=== PATIENT | male | born 1945 | race Caucasian/White ===

== ENCOUNTER → 2023-10-20 11:37 | Outpatient (REF) | payer OTHER, SELFPAY ==
[2023-10-20 13:11] LABS: Urine Albumin Negative (Neg - Trace); Urine Bilirubin Negative (Negative); Urine Character Clear (Clear); Urine Color Yellow; Urine Glucose Negative (Negative); Urine Ketone Negative (Negative); Urine Leukocyte Negative (Negative); Urine Nitrite Negative (Negative); Urine Occult Blood Negative (Negative); Urine Urobilinogen Negative (Neg - 1+)
[2023-10-20 13:22] LABS: % Basophils 0.5 % (0-2); % Eosinophils 4.7 % (0-6); % Immature Granulocytes 0.5 % (0-0.5); % Lymphocytes 40.4 % (20.5-51.1); % Monocytes 8.9 % (1.7-9.3); Absolute Eosinophils 0.4 10^3/uL (0-0.7); Absolute Lymphocytes 3.3 10^3/uL (1.2-3.4); Absolute Monocytes 0.7 10^3/uL (0.1-0.6); Absolute Neutrophils 3.6 10^3/uL (1.4-6.5); Hematocrit 38.8 % (39.0-52.0); Hemoglobin 13.4 g/dL (13.0-18.0); Mean Corp Hgb Conc. 34.5 g/dL (33.0-37.0); Mean Corpuscular Hgb 31.6 pg (27.0-31.0); Mean Corpuscular Volume 91.5 fL (80.0-94.0); Mean Platelet Volume 10.4 fL (7.4-10.4); Nucleated Red Blood Cells % 0 % (-); Platelet Count 245 10^3/uL (130-400); Red Blood Cell Count 4.24 10^6/uL (4.70-6.10); Red Cell Dist. Width 14.4 % (11.5-14.5); White Blood Cell Count 8.1 10^3/uL (4.8-10.8)
[2023-10-20 13:54] LABS: ALT (SGPT) 20 U/L (0-50); AST (SGOT) 28 U/L (17-59); Albumin 4.5 g/dl (3.5-5.0); Alkaline Phosphatase 100 U/L (38-126); Blood Urea Nitrogen 45 mg/dl (9-20); Calcium 9.7 mg/dl (8.4-10.2); Carbon Dioxide 23 mmol/L (22-30); Chloride 105 mmol/L (98-107); Glucose 96 mg/dl (70-99); HDL Cholesterol 48 mg/dl; LDL Cholesterol, Calculated 132 mg/dl; Potassium 4.5 mmol/L (3.5-5.1); Sodium 136 mmol/L (135-145); Total Bilirubin 1.1 mg/dl (0.2-1.3); Total Cholesterol 205 mg/dl (50-199); Total Protein 7.5 g/dl (6.3-8.2); Triglyceride 127 mg/dl (10-149); Very Low Density Lipoprotein 25 mg/dl (0-30); eGFR 37.82
[2023-10-20 14:09] LABS: Vitamin D, 25-OH*** 55.1 ng/mL (30-80)
== END ==
LOC: REG 11:37
PROVIDERS: ATTENDING PHYSICIAN Internal Medicine Geriatric Medicine
DX: I10 Essential (primary) hypertension (principal); E78.2 Mixed hyperlipidemia; E21.3 Hyperparathyroidism, unspecified; M25.512 Pain in left shoulder; E55.9 Vitamin D deficiency, unspecified; F41.8 Other specified anxiety disorders; R26.89 Other abnormalities of gait and mobility; G62.9 Polyneuropathy, unspecified; H81.10 Benign paroxysmal vertigo, unspecified ear; R41.3 Other amnesia; Z13.89 Encounter for screening for other disorder; I95.1 Orthostatic hypotension; H81.13 Benign paroxysmal vertigo, bilateral
CPT/HCPCS: 36415; 80053; 80061; 81003; 82306; 85025

== ENCOUNTER 2023-11-26 17:34 | Emergency (ER) | payer OTHER, SELFPAY ==
[2023-11-26 17:39] VITALS: BP 162/79
[2023-11-26 17:57] LABS: % Basophils 0.4 % (0-2); % Eosinophils 3.2 % (0-6); % Immature Granulocytes 0.3 % (0-0.5); % Lymphocytes 35.3 % (20.5-51.1); % Monocytes 7.5 % (1.7-9.3); % Neutrophils 53.3 % (42.2-75.2); Absolute Eosinophils 0.2 10^3/uL (0-0.7); Absolute Lymphocytes 2.6 10^3/uL (1.2-3.4); Absolute Monocytes 0.6 10^3/uL (0.1-0.6); Absolute Neutrophils 3.9 10^3/uL (1.4-6.5); Hematocrit 34.1 % (39.0-52.0); Hemoglobin 12.1 g/dL (13.0-18.0); Mean Corp Hgb Conc. 35.5 g/dL (33.0-37.0); Mean Corpuscular Hgb 32.2 pg (27.0-31.0); Mean Corpuscular Volume 90.7 fL (80.0-94.0); Mean Platelet Volume 9.4 fL (7.4-10.4); Nucleated Red Blood Cells % 0 % (-); Platelet Count 183 10^3/uL (130-400); Red Blood Cell Count 3.76 10^6/uL (4.70-6.10); Red Cell Dist. Width 13.6 % (11.5-14.5); White Blood Cell Count 7.3 10^3/uL (4.8-10.8)
[2023-11-26 18:26] LABS: ALT (SGPT) 16 U/L (0-50); AST (SGOT) 26 U/L (17-59); Albumin 4.2 g/dl (3.5-5.0); Alkaline Phosphatase 99 U/L (38-126); Blood Urea Nitrogen 31 mg/dl (9-20); Carbon Dioxide 23 mmol/L (22-30); Chloride 109 mmol/L (98-107); Glucose 121 mg/dl (70-99); Potassium 4.1 mmol/L (3.5-5.1); Sodium 138 mmol/L (135-145); Total Bilirubin 0.6 mg/dl (0.2-1.3); Total Protein 6.9 g/dl (6.3-8.2); eGFR 47.06
[2023-11-26 18:38] LABS: Troponin I < 0.012 ng/ml
[2023-11-26 19:37] VITALS: BP 149/80
[2023-11-26 19:38] VITALS: BMI 26.8
[2023-11-26 20:00] VITALS: BP 128/66
--- NOTE | 2023-11-26 20:33 | ED.GENMED ---
History of Present Illness
General
Chief Complaint: Chest Pain
Source: patient
Exam Limitations: none
Time Seen by Provider: 11/26/23 19:54
Nursing documentation reviewed up to this point in time: agreed with
Travel History
Have you had any contact with someone who has COVID-19?: No
Do you have any symptoms of coronavirus? Fever > 100 degrees, chills, cough, shortness of breath, sore throat, loss of taste or smell, muscle aches, or headache?: No
History of Present Illness
History of Present Illness:
Patient is a 78-year-old male with back problems history of hypertension presents to the ER for evaluation of chest pain. Patient reports he has had mostly constant left-sided chest pain for the past several days. He reports he does feel like he
is under a lot of stress because his partner was recently hospitalized for stroke and just came home today. He denies any associated shortness of breath with his nausea vomiting. Has no cardiac history. He does not smoke.
Past History
Past History
ED Past Medical History: HTN (Borderline hypertension), Psychiatric (Depression) and Other (Back pain, cervical disc disease, left shoulder arthritis)
ED Past Surgical History: Tonsilectomy
Social History
Tobacco: Former smoker
Alcohol: Occasional
Drug: None
Personal:
Living: with family (WITH )
Employment: Retired
Family History
Family History: Other (Noncontributory)
Review of Systems
Review of Systems
Allergies reviewed?: Yes
Other source history: family
All Other Systems: ROS reviewed and negative except as documented in HPI and ROS
Constitutional: Reports no symptoms; Denies fever, fatigue or chills
Respiratory: Reports no symptoms; Denies cough, hemoptysis or trouble breathing
Cardiac: Reports chest pain; Denies diaphoresis, palpitations or syncope
ABD/GI: Reports no symptoms
: Reports no symptoms
Musculoskeletal: Reports no symptoms
Skin: Reports no symptoms
Neurological: Reports no symptoms
Psychiatric: Reports no symptoms
Phy Exam
General Physical Exam
General Presentation: no apparent distress
General age: appears stated age
General Skin: warm and dry
General Habitus: normal
General Mental: alert
Cardiovascular Exam
Cardiovascular Exam: regular rate/rhythm, no murmur and normal peripheral pulses
Gastrointestinal Exam
Gastrointestinal Exam: normal bowel sounds and non tender
Neurological Exam
Neurological Exam: alert and oriented x3
Musculoskeletal Exam
Musculoskeletal Exam: full ROM
Skin Exam
Skin Exam: normal color and warm/dry
Psychiatric Exam
Psychiatric Exam: normal mood/affect
Scores
Heart Score for Chest Pain Patients
STEMI patient?: Not applicable
Course
Orders/Labs/Results
Orders:
Orders
11/26/23 17:36
Electrocardiogram (*1) Urgent
Reason for Study: Chest Pain
EKG- Treatment ONCE
11/26/23 17:49
Complete Blood Count/With Diff Urgent
Comprehensive Metabolic Panel Urgent
Troponin I Urgent
11/26/23 18:18
CR Chest - 2 Views Urgent
Comment:
Reason For Exam: chest pain
11/26/23 20:43
Acetaminophen [Tylenol] 1,000 mg PO NOW STA
Abnormal Lab Results
11/26/23
17:49
RBC 3.76 L 10^6/uL
(4.70-6.10)
Hgb 12.1 L g/dL
(13.0-18.0)
Hct 34.1 L %
(39.0-52.0)
MCH 32.2 H pg
(27.0-31.0)
Chloride 109 H mmol/L
(98-107)
BUN 31 H mg/dl
(9-20)
Creatinine 1.5 H mg/dL
(0.7-1.3)
Glucose 121 H mg/dl
(70-99)
11/26/23 17:49
11/26/23 17:49
Vital Signs
Initial and Last Documented VS:
Initial Vital Signs
Temp Pulse Resp BP Pulse Ox
98.4 F 69 20 162/79 98
11/26/23 17:39 11/26/23 17:39 11/26/23 17:39 11/26/23 17:39 11/26/23 17:39
Last Documented Vital Signs
Temp Pulse Resp BP Pulse Ox
98.4 F 54 12 169/80 99
11/26/23 17:39 11/26/23 21:00 11/26/23 21:00 11/26/23 21:00 11/26/23 21:00
MDM/Problems Addressed
Differential Diagnosis Includes:
Not limited to ACS, stress anxiety chest wall pain less likely PE
MDM/Problems Addressed:
Patient is a 78-year-old male who had constant chest pain for the past several days not associate with shortness of breath nausea vomiting. He has no cardiac history. He has no acute findings on chest x-ray EKG normal cardiac troponin. Patient
was given Tylenol here in no acute distress he does mention that he was very stressed recently as his partner was recently hospitalized for stroke in the ICU here. Pain started when his partner was admitted. He does admit to feeling very stressed
he was home alone.
He presents awake alert no acute distress labs reviewed as documented cardiac troponin negative. Patient's BUN/creatinine are elevated at 31 and 1.5. He does report his doctors are aware of this I did review with patient that he should not be
taking any ibuprofen for discomfort he has been taking some ibuprofen for his back pain which is chronic. I reviewed with patient the importance of following up with his family doctor the next of days for reevaluation of his kidney function and lab
recheck.
Will place on chest pain hotline
*Radiology
Radiology exam reviewed: radiology read reviewed
*Pulse Oximetry
Patient hypoxic: no
*EKG
Interpreted by ED Provider?: Yes
Interpretation: normal
Heart Rate: 68
Rate: normal
Rhythm: sinus
Ischemia: no ischemia
*Critical Care Note
Total Time (30-74mins, 75-104mins- exclusive of procedures): Not Applicable
ED Attending Note
-
Portions of this chart may have been created with voice recognition software.� Occasional wrong word or��sound alike� substitutions may have occurred due to the inherent limitations of voice recognition software.
Discharge Plan
Departure
Patient Disposition: Home (Routine Discharge)
Date of Disposition: 11/26/23
Time of Disposition: 21:31
Patient with high blood pressure during this ER visit?: Yes
Condition: Fair
Covid-19: Not Applicable
Discharge Problem:
Chest pain
Instructions: Chest Pain CBC Follow Up
Prescriptions:
No Action
hydrocodone-acetaminophen 7.5 MG/750 MG tablet
0.5 tab PO Q4HPRN PRN (Reason: pain)
lisinopril 10 mg Tablet
10 mg PO DAILY
Referrals:
Cooper Ridley MD [Family Provider] -
Shahid Leonard MD [Active] -
Activity Restrictions/Additional Instructions:
As discussed you were placed on the chest pain hotline which means you should receive a phone call from cardiology in the next several days however if you do not please give the office a call to schedule an appointment as soon as possible. Return
if any worsening of symptoms.
Interventions
Interventions:
*Risk Screen - Suicide Last Done: 11/26/23 19:38
*General Assessment Last Done: 11/26/23 19:38
*Neglect/Abuse Screening Last Done: 11/26/23 19:38
ED- Fall Risk Assessment Last Done: 11/26/23 19:38
*ED COVID-19 Vaccine History Last Done: 11/26/23 19:38
*Nursing Disposition Last Done: 11/26/23 21:43
ED- Cardiac Assessment Last Done: 11/26/23 19:38
Discharge Date and Time
Discharge Date/Time: 11/26/23 21:43
Print Language: LATVIAN
[2023-11-26] MEDS: TYLENOL 1000 MG PO (20:47)
[2023-11-26 21:00] VITALS: BP 169/80
== END 2023-11-26 21:43 | disposition home or self-care (01) ==
LOC: EMR 17:34
PROVIDERS: EMERGENCY PHYSICIAN Emergency Medicine; FAMILY PHYSICIAN Internal Medicine Geriatric Medicine
DX: R07.89 Other chest pain (principal); I10 Essential (primary) hypertension; F32.A Depression, unspecified; M50.90 Cervical disc disorder, unspecified, unspecified cervical region; M13.812 Other specified arthritis, left shoulder; Z86.73 Personal history of transient ischemic attack (TIA), and cerebral infarction without residual deficits; Z87.891 Personal history of nicotine dependence
CPT/HCPCS: 99283; 71046; 80053; 84484; 85025; 93005

== ENCOUNTER → 2024-03-07 11:45 | Outpatient (REF) | payer OTHER, SELFPAY ==
[2024-03-07 12:39] LABS: % Basophils 0.3 % (0-2); % Eosinophils 3.9 % (0-6); % Immature Granulocytes 0.3 % (0-0.5); % Lymphocytes 36.8 % (20.5-51.1); % Monocytes 8.8 % (1.7-9.3); % Neutrophils 49.9 % (42.2-75.2); Absolute Eosinophils 0.3 10^3/uL (0-0.7); Absolute Lymphocytes 2.7 10^3/uL (1.2-3.4); Absolute Monocytes 0.6 10^3/uL (0.1-0.6); Absolute Neutrophils 3.6 10^3/uL (1.4-6.5); Hematocrit 36.4 % (39.0-52.0); Hemoglobin 12.8 g/dL (13.0-18.0); Mean Corp Hgb Conc. 35.2 g/dL (33.0-37.0); Mean Corpuscular Hgb 31.4 pg (27.0-31.0); Mean Corpuscular Volume 89.4 fL (80.0-94.0); Mean Platelet Volume 9.8 fL (7.4-10.4); Nucleated Red Blood Cells % 0 % (-); Platelet Count 198 10^3/uL (130-400); Red Blood Cell Count 4.07 10^6/uL (4.70-6.10); Red Cell Dist. Width 13.2 % (11.5-14.5); White Blood Cell Count 7.3 10^3/uL (4.8-10.8)
[2024-03-07 12:43] LABS: Urine Albumin Negative (Neg - Trace); Urine Bilirubin Negative (Negative); Urine Character Clear (Clear); Urine Color Yellow; Urine Glucose Negative (Negative); Urine Ketone Negative (Negative); Urine Leukocyte Negative (Negative); Urine Nitrite Negative (Negative); Urine Occult Blood Negative (Negative); Urine Specific Gravity 1.015 (<1.030); Urine Urobilinogen Negative (Neg - 1+)
[2024-03-07 12:59] LABS: NT-proBNP 61.3 pg/ml
[2024-03-07 13:02] LABS: ALT (SGPT) 15 U/L (0-50); AST (SGOT) 23 U/L (17-59); Albumin 4.4 g/dl (3.5-5.0); Alkaline Phosphatase 91 U/L (38-126); Blood Urea Nitrogen 30 mg/dl (9-20); Calcium 9.9 mg/dl (8.4-10.2); Carbon Dioxide 25 mmol/L (22-30); Chloride 106 mmol/L (98-107); Glucose 107 mg/dl (70-99); HDL Cholesterol 43 mg/dl; LDL Cholesterol, Calculated 95 mg/dl; Potassium 4.6 mmol/L (3.5-5.1); Sodium 138 mmol/L (135-145); Total Bilirubin 0.9 mg/dl (0.2-1.3); Total Cholesterol 182 mg/dl (50-199); Total Protein 6.8 g/dl (6.3-8.2); Triglyceride 223 mg/dl (10-149); Very Low Density Lipoprotein 44 mg/dl (0-30); eGFR 43.56
[2024-03-07 13:22] LABS: Vitamin D, 25-OH*** 55.1 ng/mL (30-80)
[2024-03-07 13:27] LABS: Intact PTH 56.8 pg/ml (13.6-85.8)
== END ==
LOC: REG 11:45
PROVIDERS: ATTENDING PHYSICIAN Internal Medicine Geriatric Medicine
DX: E78.2 Mixed hyperlipidemia (principal); I10 Essential (primary) hypertension; E21.3 Hyperparathyroidism, unspecified; M25.512 Pain in left shoulder; E55.9 Vitamin D deficiency, unspecified; F41.8 Other specified anxiety disorders; R26.89 Other abnormalities of gait and mobility; R26.9 Unspecified abnormalities of gait and mobility; G62.9 Polyneuropathy, unspecified; R41.3 Other amnesia; Z13.89 Encounter for screening for other disorder; R42 Dizziness and giddiness; I95.1 Orthostatic hypotension; H81.13 Benign paroxysmal vertigo, bilateral; M54.6 Pain in thoracic spine; R07.9 Chest pain, unspecified
CPT/HCPCS: 36415; 80053; 80061; 81003; 82306; 83880; 83970; 85025

== ENCOUNTER → 2024-03-09 12:52 | Outpatient (REF) | payer OTHER, SELFPAY | LOC: RAD 12:52 | PROVIDERS: ATTENDING PHYSICIAN Nurse Practitioner Family; FAMILY PHYSICIAN Internal Medicine Geriatric Medicine | DX: M25.511 Pain in right shoulder (principal) | CPT/HCPCS: 73030 ==

== ENCOUNTER → 2024-03-15 09:31 | Outpatient (REF) | payer OTHER, SELFPAY | LOC: RCS 09:31 | PROVIDERS: ATTENDING PHYSICIAN Internal Medicine Geriatric Medicine | DX: E78.2 Mixed hyperlipidemia (principal); I10 Essential (primary) hypertension; E21.3 Hyperparathyroidism, unspecified; M25.512 Pain in left shoulder; E55.9 Vitamin D deficiency, unspecified; F41.8 Other specified anxiety disorders; R26.89 Other abnormalities of gait and mobility; R26.9 Unspecified abnormalities of gait and mobility; G62.9 Polyneuropathy, unspecified; R41.3 Other amnesia; Z13.89 Encounter for screening for other disorder; R42 Dizziness and giddiness; I95.1 Orthostatic hypotension; H81.13 Benign paroxysmal vertigo, bilateral; M54.6 Pain in thoracic spine; R07.9 Chest pain, unspecified | CPT/HCPCS: 93017; 93350 ==

== ENCOUNTER → 2024-04-12 09:08 | Outpatient (REF) | payer OTHER, SELFPAY ==
[2024-04-12 11:47] LABS: Blood Urea Nitrogen 22 mg/dl (9-20); Calcium 9.9 mg/dl (8.4-10.2); Carbon Dioxide 24 mmol/L (22-30); Chloride 104 mmol/L (98-107); Glucose 101 mg/dl (70-99); Potassium 4.9 mmol/L (3.5-5.1); Sodium 140 mmol/L (135-145); eGFR 51.13
== END ==
LOC: REG 09:08
PROVIDERS: ATTENDING PHYSICIAN Nurse Practitioner Family; FAMILY PHYSICIAN Internal Medicine Geriatric Medicine
DX: N28.9 Disorder of kidney and ureter, unspecified (principal)
CPT/HCPCS: 36415; 80048

== ENCOUNTER → 2024-06-20 06:45 | Outpatient (REF) | payer OTHER, SELFPAY | LOC: PAVMRI 06:45 | PROVIDERS: ATTENDING PHYSICIAN Orthopaedic Surgery; FAMILY PHYSICIAN Internal Medicine Geriatric Medicine | DX: M25.512 Pain in left shoulder (principal) | CPT/HCPCS: 73221 ==

== ENCOUNTER → 2025-01-01 09:05 | Outpatient (REF) | payer OTHER, SELFPAY ==
[2025-01-01 09:53] LABS: % Basophils 0.3 % (0-2); % Eosinophils 2.9 % (0-6); % Immature Granulocytes 0.2 % (0-0.5); % Lymphocytes 34.5 % (20.5-51.1); % Monocytes 7.4 % (1.7-9.3); % Neutrophils 54.7 % (42.2-75.2); Absolute Eosinophils 0.3 10^3/uL (0-0.7); Absolute Monocytes 0.7 10^3/uL (0.1-0.6); Absolute Neutrophils 4.8 10^3/uL (1.4-6.5); Hematocrit 42.6 % (39.0-52.0); Hemoglobin 14.1 g/dL (13.0-18.0); Mean Corp Hgb Conc. 33.1 g/dL (33.0-37.0); Mean Corpuscular Hgb 30.3 pg (27.0-31.0); Mean Corpuscular Volume 91.6 fL (80.0-94.0); Mean Platelet Volume 9.8 fL (7.4-10.4); Nucleated Red Blood Cells % 0 % (-); Platelet Count 217 10^3/uL (130-400); Red Blood Cell Count 4.65 10^6/uL (4.70-6.10); Red Cell Dist. Width 13.6 % (11.5-14.5); White Blood Cell Count 8.7 10^3/uL (4.8-10.8)
[2025-01-01 11:21] LABS: ALT (SGPT) 15 U/L (0-50); AST (SGOT) 22 U/L (17-59); Albumin 4.8 g/dl (3.5-5.0); Alkaline Phosphatase 121 U/L (38-126); Blood Urea Nitrogen 24 mg/dl (9-20); Calcium 10.2 mg/dl (8.4-10.2); Carbon Dioxide 24 mmol/L (22-30); Chloride 107 mmol/L (98-107); Glucose 101 mg/dl (70-99); HDL Cholesterol 68 mg/dl; LDL Cholesterol, Calculated 123 mg/dl; Sodium 140 mmol/L (135-145); Total Bilirubin 0.8 mg/dl (0.2-1.3); Total Cholesterol 215 mg/dl (50-199); Total Protein 7.7 g/dl (6.3-8.2); Triglyceride 122 mg/dl (10-149); Very Low Density Lipoprotein 24 mg/dl (0-30); Vitamin D, 25-OH*** 44.1 ng/mL (30-80); eGFR 50.81
[2025-01-01 11:30] LABS: Potassium 4.9 mmol/L (3.5-5.1)
[2025-01-01 12:10] LABS: Urine Albumin 1+ (Neg - Trace); Urine Bilirubin Negative (Negative); Urine Character Clear (Clear); Urine Color Yellow; Urine Glucose Negative (Negative); Urine Ketone Negative (Negative); Urine Leukocyte Negative (Negative); Urine Nitrite Negative (Negative); Urine Occult Blood Negative (Negative); Urine Specific Gravity 1.015 (<1.030); Urine Urobilinogen Negative (Neg - 1+)
[2025-01-01 14:48] LABS: Urine Amorphous Seen; Urine Mucus Moderate; Urine Squamous Cell 0-2 /LPF (Few)
[2025-01-01 14:49] LABS: Urine Red Blood Cell 0-2 /HPF (0-2); Urine White Cell 0-2 /HPF (0-5)
[2025-01-02 19:14] LABS: Intact PTH 123.4 pg/ml (13.6-85.8)
[2025-01-03 04:11] LABS: Vitamin D 1,25 Dihydroxy 46.9 pg/mL (19.9-79.3)
[2025-01-03 16:04] LABS: Free T4 1.03 ng/dl (0.78-2.19)
[2025-01-03 16:18] LABS: TSH 4.25 uIU/ml (0.47-4.68)
== END ==
LOC: REG 09:05
PROVIDERS: ATTENDING PHYSICIAN Internal Medicine Geriatric Medicine
DX: E21.3 Hyperparathyroidism, unspecified (principal); E78.2 Mixed hyperlipidemia; I10 Essential (primary) hypertension; E55.9 Vitamin D deficiency, unspecified; R26.89 Other abnormalities of gait and mobility; G62.9 Polyneuropathy, unspecified; R26.9 Unspecified abnormalities of gait and mobility; R41.3 Other amnesia; I95.1 Orthostatic hypotension; Z13.89 Encounter for screening for other disorder; M79.674 Pain in right toe(s)
CPT/HCPCS: 36415; 80053; 80061; 81003; 81015; 82306; 82652; 83970; 84439; 84443; 85025

== ENCOUNTER → 2025-01-03 14:57 | Outpatient (REF) | payer OTHER, SELFPAY | LOC: REG 14:57 | PROVIDERS: ATTENDING PHYSICIAN Nurse Practitioner Family | DX: K59.01 Slow transit constipation (principal) | CPT/HCPCS: 74018 ==

== ENCOUNTER 2025-02-24 15:27 | Inpatient (IN) | payer OTHER, SELFPAY ==
[2025-02-24] VITALS (16 sets, daily range): BP systolic 102–184; BP diastolic 55–117; BMI 23.7; BMI 23.4
[2025-02-24 05:34] LABS: Hematocrit 44.5 % (39.0-52.0); Hemoglobin 15.6 g/dL (13.0-18.0); Mean Corp Hgb Conc. 35.1 g/dL (33.0-37.0); Mean Corpuscular Volume 87.8 fL (80.0-94.0); Nucleated Red Blood Cells % 0 % (-); Platelet Count 205 10^3/uL (130-400); Red Cell Dist. Width 14.5 % (11.5-14.5)
[2025-02-24 05:56] LABS: ALT (SGPT) 15 U/L (0-50); AST (SGOT) 23 U/L (17-59); Albumin 4.7 g/dl (3.5-5.0); Alkaline Phosphatase 127 U/L (38-126); Blood Urea Nitrogen 13 mg/dl (9-20); Calcium 10.0 mg/dl (8.4-10.2); Carbon Dioxide 21 mmol/L (22-30); Chloride 104 mmol/L (98-107); Glucose 130 mg/dl (70-99); Lipase 63 U/L (23-300); Potassium 4.0 mmol/L (3.5-5.1); Sodium 135 mmol/L (135-145); Total Protein 7.9 g/dl (6.3-8.2); eGFR > 60.00
[2025-02-24] MEDS: DILAUDID 0.5 MG IV ×2 (07:56→09:36)
[2025-02-24] MEDS: ZOFRAN 4 MG IV (07:56)
[2025-02-24] MEDS: NSS 1000 IV (07:57)
[2025-02-24] MEDS: PROTONIX IV 80 MG IV (08:05)
[2025-02-24 08:25] LABS: Troponin I < 0.012 ng/ml
--- NOTE | 2025-02-24 09:14 | ED.GENMED ---
History of Present Illness
General
Chief Complaint: Abdominal Pain
Source: patient
Exam Limitations: none
Time Seen by Provider: 02/24/25 07:16
Nursing documentation reviewed up to this point in time: agreed with
History of Present Illness
History of Present Illness:
79 yo male with h/o HTN, HLD, Afib on Coumadin, mitral valve regurg and stenosis, RA, Depression, low back pain, presents with abdominal pain that began on 3 nights ago 3 hours after eating. The pain occurred suddenly while the patient was sitting
and has persisted since onset. He describes the pain as a severe aching sensation, comparable to being 'hit by a boxer.' Bending over eases the pain some. He has not slept or eaten much in the past three days due to the pain. There has been no
fever, vomiting or diarrhea. He mentioned some leg cramping, which he believes may be due to needing more movement or dehydration. He has not experienced pain in the abdomen or any changes in urination.
Past History
Past History
ED Past Medical History: HTN (Borderline hypertension), Psychiatric (Depression) and Other (Back pain, cervical disc disease, left shoulder arthritis)
ED Past Surgical History: Tonsilectomy
Social History
Tobacco: Former smoker
Alcohol: Occasional
Drug: None
Personal:
Living: with family (WITH )
Employment: Retired
Family History
Family History: Other (Noncontributory)
Review of Systems
Review of Systems
Allergies reviewed?: Yes
All Other Systems: ROS reviewed and negative except as documented in HPI and ROS
Constitutional: Denies fever
Cardiac: Denies chest pain
ABD/GI: Reports abdominal pain and nausea; Denies vomiting or diarrhea
: Denies dysuria or difficulty voiding
Musculoskeletal: Reports other (Muscle cramps in legs intermittent)
Skin: Reports no symptoms
Neurological: Reports no symptoms
Phy Exam
Physical Exam
Physical Exam:
GENERAL: Mild distress due to abdominal pain. A&Ox3.
CONSTITUTIONAL: Afebrile.
EYES: clear, conjunctivae normal
ENMT: moist mucus membranes, Pharynx nl
RESPIRATORY: Regular respirations, nonlabored, lungs clear.
CARDIOVASCULAR: Regular rate and rhythm, no murmurs, no rubs.
GI: Soft, significantly tender mid upper epigastric to left abdomen. Hypoactive bowel sounds
MUSCULOSKELETAL: Moves with ease. Well perfused.
SKIN: Warm, dry, pink
PSYCH: Anxious mood and affect. Well kept, interactive and appropriate
NEUROLOGIC: Awake, alert and oriented. No focal neurological deficits
Course
Orders/Labs/Results
Orders:
Orders
02/24/25 05:16
Electrocardiogram (*1) Urgent
Reason for Study: Abdominal Pain
EKG- Treatment ONCE
IV Insert/Care/Rem.- Treatment PRN
02/24/25 05:29
Complete Blood Count/With Diff Urgent
Comprehensive Metabolic Panel Urgent
Lipase Urgent
02/24/25 07:36
Troponin I Urgent
02/24/25 07:48
0.9% Sodium Chloride 1000 ml [Nss] 1,000 ml IV BOLUS
HYDROmorphone [Dilaudid] 0.5 mg IV NOW STA
Ondansetron Injectable [Zofran] 4 mg IV NOW STA
02/24/25 07:49
CT Abd/pelvis W Iv Cont Urgent
Comment:
Reason For Exam: upper abd pain
HYDROmorphone [Dilaudid] 0.5 mg .ROUTE .STK-MED ONE
Ondansetron Injectable [Zofran] 4 mg .ROUTE .STK-MED ONE
Pantoprazole [Protonix IV] 80 mg IV NOW STA
02/24/25 09:21
US Abdomen Limited Urgent
Reason For Exam: pain, suspicioun on CT scan for GB disease
02/24/25 09:31
HYDROmorphone [Dilaudid] 0.5 mg IV NOW STA
02/24/25 13:12
SURGICAL CONSULT Urgent
Consulting Provider: Wes Neri
Was physician already notified: Yes
Reason for consult: acute cholecystitis
02/24/25 13:13
Piperacillin/Tazo 3.375 Gram [Zosyn] 3.375 gram in 50 ml IV NOW
02/24/25 13:16
Prothrombin Time Urgent
02/24/25 14:43
Admit/Transfer Patient As Directed
Co-Sign Provider:
Level of Care: Inpatient admission
Assign to:: Telemetry
Physician / Group: yanique/medicine
Diagnosis: cholecystitis
Reason for Telemetry: Arrhythmia
Date to Stop Telemetry: 02/27/25
Time to Stop Telemetry: 11:00
Reason for Hospitalization: cholecystitis
Expected length of stay greater than two midnights?: Yes
ELOS- Estimated Length of Stay in days: 3
I certify the patient meets the requirements for IP care: Yes
PRN Pain Medication Management As Directed
May give lesser potent ordered pain med per pt: Yes
preference::
Protocol:: Medication orders for pain may be administered in a
manner that supports deferring to patient preference
when the pt is:
- Requesting an ordered lesser potent pain medication.
Least to most potent pain medications are defined
as: acetaminophen < NSAID < tramadol < opioids
(morphine, oxycodone, hydromorphone).
- Requesting a lesser dose of the same medication IF
ORDERED.
- Requesting a less intrusive route of administration
if both routes are prescribed by the provider (PO <
IV).
02/24/25 14:44
Code Status As Directed
Resuscitation Status: Full Code
02/27/25 11:00
DC Protocol for Telemetry ONCE
Abnormal Lab Results
02/24/25 02/24/25
05:29 13:16
WBC 12.2 H 10^3/uL
(4.8-10.8)
Abs Immat Gran (auto) 0.1 H 10^3/uL
(0-0.05)
Absolute Neuts (auto) 9.5 H 10^3/uL
(1.4-6.5)
Absolute Monos (auto) 1.1 H 10^3/uL
(0.1-0.6)
Neutrophils % 77.9 H %
(42.2-75.2)
Lymphocytes % 12.7 L %
(20.5-51.1)
PT 14.8 H Sec
(11.4-14.6)
Carbon Dioxide 21 L mmol/L
(22-30)
Glucose 130 H mg/dl
(70-99)
Alkaline Phosphatase 127 H U/L
(38-126)
02/24/25 05:29
02/24/25 05:29
Vital Signs
Initial and Last Documented VS:
Initial Vital Signs
Temp Pulse Resp BP Pulse Ox
98.9 F 82 22 164/87 97
02/24/25 05:11 02/24/25 05:11 02/24/25 05:11 02/24/25 05:11 02/24/25 05:11
Last Documented Vital Signs
Temp Pulse Resp BP Pulse Ox
98.9 F 87 20 158/90 97
02/24/25 05:11 02/24/25 12:49 02/24/25 12:49 02/24/25 12:49 02/24/25 12:30
MDM/Problems Addressed
Differential Diagnosis Includes:
1. Peptic Ulcer Disease
2. Pancreatitis
3. Cholecystitis
4. Bowel Obstruction
5. Renal Colic
6. Diverticulitis
7. Abdominal Aortic Aneurysm
8. Acute Mesenteric Ischemia
9. Gastritis
10. Hepatitis
MDM/Problems Addressed:
79 yo male with h/o HTN, Depression, low back pain, presents with abdominal pain that began on 3 nights ago 3 hours after eating. The pain occurred suddenly while the patient was sitting and has persisted since onset. He describes the pain as a
severe aching sensation, comparable to being 'hit by a boxer.' Bending over eases the pain some. He has not slept or eaten much in the past three days due to the pain. There has been no fever, vomiting or diarrhea. He mentioned some leg cramping,
which he believes may be due to needing more movement or dehydration. He has not experienced pain in the abdomen or any changes in urination.
Afebrile, mild distress due to pain
9:15 AM:
CBC, mild leukocytosis with WBC 12.2 otherwise unremarkable
CMP: Normal
Lipase normal
CT abdomen pelvis with IV only contrast, radiology report read: IMPRESSION:
Relative prominent gallbladder without definitive cholelithiasis. Cannot exclude some mild gallbladder wall thickening. No biliary tract dilatation. Consider Abdominal ultrasound for more complete evaluation, if clinically warranted.
Sigmoid diverticulosis. High attenuation density in the right colon, has there been recent oral contrast administration?
Subcentimeter low-attenuation hepatic lesion too small to characterize.
11:55 a.m.
US radiology report read: IMPRESSION:
Prominent gallbladder with stones and mild wall thickening. Positive sonographic Corado's sign. FINDINGS COULD REPRESENT ACUTE CHOLECYSTITIS.
Common bile duct borderline enlarged. No findings to suggest intrahepatic biliary tract dilatation.
Surgeon Dr. Neri notified, consult in.
1:00 p.m.
Pt on Coumadin, admitted to Hospitalist service. Hospitalist notified.
He is comfortable, stable.
Pt states his 'allergy' to PCN is 'high anxiety' no true allergy. Zosyn ordered.
*Pulse Oximetry
SaO2: 96
Oxygen Mode of Delivery: Room air
Patient hypoxic: not evaluated
*Critical Care Note
Total Time (30-74mins, 75-104mins- exclusive of procedures): Not Applicable
ED Attending Note
-
Portions of this chart may have been created with voice recognition software.� Occasional wrong word or��sound alike� substitutions may have occurred due to the inherent limitations of voice recognition software.
Discharge Plan
Departure
Patient Disposition: Admit
Date of Disposition: 02/24/25
Time of Disposition: 11:56
Presentation/result/management discussed w/ accepting MD/DO: Hospitalist
Condition: Fair
Discharge Problem:
Acute cholecystitis
Prescriptions:
No Action
acetaminophen [Tylenol] 325 mg Tablet
650 mg PO Q6HPRN PRN (Reason: MILD PAIN)
amlodipine [Norvasc] 10 mg Tablet
10 mg PO DAILY@1400
duloxetine [Cymbalta] 30 mg Capsule,Delayed Release(Dr/Ec)
30 mg PO DAILY@1400
Referrals:
Cooper Ridley MD [Family Provider, Internal Medicine]
Interventions
Interventions:
*Risk Screen - Suicide Last Done: 02/24/25 05:11
*General Assessment Last Done: 02/24/25 05:11
*Neglect/Abuse Screening Last Done: 02/24/25 05:11
*ED- Fall Risk Assessment Last Done: 02/24/25 07:46
*ED COVID-19 Vaccine History Last Done: 02/24/25 07:46
PE-Hdhxya-Xiyylkevbz Assessment Last Done: 02/24/25 07:41
Discharge Date and Time
Print Language: CITIZEN OF [place]
[2025-02-24] MEDS: ZOSYN 50 IV (13:20)
[2025-02-24 13:35] LABS: INR 1.13; PT 14.8 Sec (11.4-14.6)
--- NOTE | 2025-02-24 14:48 | HPS.HSE ---
Family Physician
-
Family Physician: Cooper Ridley
Chief Complaint
-
abdominal pain
History of Present Illness
79 yo male with h/o HTN, HLD, Afib on Coumadin, mitral valve regurg and stenosis, RA, Depression, low back pain, presents for abdominal pain. Symptoms became apparent 3 nights ago after eating. Pain described as aching, tender to palpation,
exacerbated by bending over. Has not been able to eat or sleep over the last 3 days due to the pain. Otherwise no fever, chills, vomiting, diarrhea. Denies dysuria. Afebrile, pulse 87, respiratory rate 21, blood pressure 158/90. Labs noted to
have a white count of 12.2, creatinine 1, alk phos 127, troponin negative x 1. Ultrasound positive with stones and mild gallbladder thickening, positive sonographic Corado sign, enlarged CBD, findings could represent acute cholecystitis. CT
imaging was unremarkable for acute findings.
Medical History
Past Medical History
Past Medical History: Reports Other (HTN (Borderline hypertension), Psychiatric (Depression) and Other (Back pain, cervical disc disease, left shoulder arthritis))
Past Surgical History: Reports Tonsilectomy
Social History
Tobacco: Former Smoker
Alcohol: Occasional
Drug: None
Personal:
Living: With Family
Family History
Family History: Not pertinent
Allergies / Home Medications
Allergies reflects when Allergies were last updated in [employer].
Home Medications with original date entered in [employer]
Allergy/Medication List:
Allergies
Allergy/AdvReac Type Severity Reaction Status Date / Time
clonazepam Allergy Unknown Verified 02/24/25 11:50
codeine Allergy Unknown Verified 02/24/25 11:50
Penicillins Allergy Unknown Verified 02/24/25 11:50
Home Medications
acetaminophen 325 mg tablet (Tylenol) 650 mg PO Q6HPRN PRN MILD PAIN 02/24/25
amlodipine 10 mg tablet (Norvasc) 10 mg PO DAILY@1400 02/24/25
duloxetine 30 mg capsule,delayed release 30 mg PO DAILY@1400 02/24/25
Review of Systems
-
History Source: Patient
A 12 point ROS was completed and negative except as noted: Yes
Physical Exam
Vital Signs
Vital Signs
Temp Pulse Resp BP Pulse Ox
98.9 F 87 20 158/90 97
02/24/25 05:11 02/24/25 12:49 02/24/25 12:49 02/24/25 12:49 02/24/25 12:30
Physical Exam
General: Well Developed, Well Nourished and Other (Mild distress due to abdominal pain. A&Ox3.)
HEENT: NormoCephalic
Respiratory: Clear
Cardiac: S1/S2
GI: Soft and Tender (significantly tender mid epigastric )
Musculoskeletal: No Clubbing
Skin: Warm
Neuro: Awake, Alert, Oriented and AO x 3
Hematologic/Lymphatic: No Lymphadenopathy
Laboratory Results
-
02/24/25 05:29
02/24/25 05:29
Laboratory Results
PT 14.8 Sec (11.4-14.6) H 02/24/25 13:16
INR 1.13 02/24/25 13:16
Total Bilirubin 1.1 mg/dl (0.2-1.3) 02/24/25 05:29
AST 23 U/L (17-59) 02/24/25 05:29
ALT 15 U/L (0-50) 02/24/25 05:29
Alkaline Phosphatase 127 U/L (38-126) H 02/24/25 05:29
Troponin I < 0.012 ng/ml 02/24/25 07:36
Lipase 63 U/L (23-300) 02/24/25 05:29
Data Reviewed
-
CT Scan: Report Reviewed by me
Ultrasound: Report Reviewed by me
Lab Data: Labs Reviewed by me
Impression/Plan
-
IMPRESSION:
79 yo male with h/o HTN, HLD, Afib on Coumadin, mitral valve regurg and stenosis, RA, Depression, low back pain, presents for abdominal pain. Tenderness to palpation to the mid epigastric area. Ultrasound with evidence of most likely acute
cholecystitis.
PLAN:
#Sepsis
#Acute cholecystitis
#Abdominal pain
� N.p.o.
� Pain control
� Antiemetics
� IV fluids
� Antibiotics
� Follow-up cultures
� Surgery consulted
� Trend troponins to ensure no cardiac issue
#Hypertension
� Hold antihypertensives
#DVT prophylaxis
� HSQ
[2025-02-24] MEDS: TORADOL 15 MG IV ×2 (15:39→21:50)
[2025-02-24] MEDS: LR 1000 IV (15:45)
[2025-02-24 16:37] LABS: Troponin I < 0.012 ng/ml
[2025-02-24] MEDS: ZOSYN 100 IV (19:03)
[2025-02-24] MEDS: HEPARIN 5000 UNITS SC (19:04)
[2025-02-24 22:32] LABS: Troponin I < 0.012 ng/ml
[2025-02-25] VITALS (12 sets, daily range): BP systolic 114–144; BP diastolic 53–73; BMI 23.4; BMI 24.2
[2025-02-25] MEDS: HEPARIN 5000 UNITS SC ×3 (00:53→16:14)
[2025-02-25] MEDS: ZOSYN 100 IV ×4 (00:53→20:05)
[2025-02-25] MEDS: LR 1000 IV ×3 (05:51→21:19)
[2025-02-25 07:14] LABS: Troponin I < 0.012 ng/ml
[2025-02-25 07:15] LABS: Hematocrit 35.9 % (39.0-52.0); Hemoglobin 12.4 g/dL (13.0-18.0); Mean Corp Hgb Conc. 34.5 g/dL (33.0-37.0); Mean Corpuscular Volume 90.4 fL (80.0-94.0); Platelet Count 182 10^3/uL (130-400); Red Cell Dist. Width 14.6 % (11.5-14.5)
[2025-02-25 07:20] LABS: ALT (SGPT) 126 U/L (0-50); AST (SGOT) 84 U/L (17-59); Albumin 3.6 g/dl (3.5-5.0); Alkaline Phosphatase 113 U/L (38-126); Blood Urea Nitrogen 22 mg/dl (9-20); Calcium 9.1 mg/dl (8.4-10.2); Carbon Dioxide 28 mmol/L (22-30); Chloride 104 mmol/L (98-107); Estimated Creatinine Clearance 37 ml/min; Glucose 88 mg/dl (70-99); Potassium 3.9 mmol/L (3.5-5.1); Sodium 134 mmol/L (135-145); Total Protein 6.1 g/dl (6.3-8.2); eGFR 46.77
[2025-02-25] MEDS: MORPHINE SULFATE 2 MG IV ×2 (08:03→14:32)
--- NOTE | 2025-02-25 10:49 | W.PN.HOSP.TC ---
Today's Communication/Plan
-
N.p.o.
Increase rate of IV fluids
Assessment / Plan
Assessment / Plan
Gen-AAOx3, NAD
HEENT-NC, AT, anicteric, clear oral mm
Neck-supple
CV-reg, no M, +S1/S2
Lungs-clear B/L
Abd-soft, tender right upper quadrant with mild guarding
Ext-no edema
Musculoskeletal-no cyanosis, clubbing
Skin-warm and dry
Neuro-grossly non-focal
Psych-calm, cooperative
Acute calculus cholecystitis -imaging noted. N.p.o., awaiting cholecystectomy today. Continue empiric antibiotics given leukocytosis. He is afebrile, no other signs or symptoms of sepsis.
Medically stable for surgery.
LORNA -suspect related to volume depletion and contrast-induced nephropathy. Trend creatinine. Urine output noted to be low. Increase rate of IV fluids.
Essential hypertension -stable.
Hyperparathyroidism
Migraine headaches
Full code
Anticipated Discharge: Within 24 hours
Subjective/Interval History
-
Date of Service: February 25, 2025
Patient seen and examined. No complaints.
Objective Data
-
Labs:
Laboratory Results
02/25/25
06:31
WBC 10.9 H
Hgb 12.4 L D
Hct 35.9 L
Plt Count 182
Sodium 134 L
Potassium 3.9
Chloride 104
Carbon Dioxide 28
BUN 22 H
Creatinine 1.5 H
Glucose 88
Calcium 9.1
Total Bilirubin 2.1 H D
AST 84 H
ALT 126 H
Alkaline Phosphatase 113
Vital Signs:
Vital Signs
Temp Pulse Resp BP Pulse Ox
98.1 F 75 18 136/71 95
02/25/25 08:17 07/21/25 08:17 02/25/25 08:17 02/25/25 08:17 02/25/25 08:17
Review of Systems
-
History Source: Patient
All other systems: Reviewed and negative
--- NOTE | 2025-02-25 11:22 | CON.GS ---
Addendum entered and electronically signed by Bladimir Forbes MD 02/25/25 18:00:
I saw and examined the patient independently.
The Composition Molder's note was reviewed and I agree with the note, assessment and plan except where noted below.
Comment: This is an 79-year-old male who presents with a 4-day history of right upper quadrant abdominal pain concerning for acute cholecystitis.
Will plan for a laparoscopic cholecystectomy and cholangiogram in the OR today.
N.p.o., IV fluids, IV antibiotics.
Patient is not on anticoagulation as previously reported
Risks/Benefits/Alternatives, expected postoperative course and possible complications (bleeding, infection, injury to surrounding structures, acute/chronic pain) discussed at length. Patient wishes to proceed with surgery. All questions answered.
Consent obtained.
I spent the minutes in total for the care of this patient today including direct patient care and counseling, reviewing labs, imaging, coordination of care, as well as documentation.
Original Note:
Consultation
-
Date/Time Consultation Performed: 02/25/2530
Medical History
-
Chief Complaint: RUQ pain
History of Present Illness:
Mr. Mccarthy is an 79 yo male with a h/o HTN who presented through the ED last night with RUQ pain which began evening a few hours after dinner. He has had symptoms of nausea with poor appetite and has not eaten much since that time. His
symptoms persisted causing him to present through the ED last night for evaluation. He is overall a poor historian, but spouse at bedside to assist. He is tender to the RUQ on exam. He denies fevers or chills. He denies vomiting. Of note, initial ED
note with reported history of Afib on warfarin as well as MV dz, pt and spouse deny, review of medical record without prior record of this. Normal stress echo in 2023. Normal INR on presentation.
Past Medical History
Past Medical History: Diverticulitis, HTN, Psychiatric (depression) and Other (OA/hip pain, Lumbar radiculopathy, Hyperparathyroidism, Migraine)
Past Surgical History: Tonsilectomy
Social History
Tobacco: Non-Smoker
Alcohol: None
Personal:
Living: With Family
Family History
Family History: Reviewed & Not Pertinent
Allergies / Home Medications
Allergy/AdvReac Type Severity Reaction Status Date / Time
clonazepam Allergy Unknown Verified 02/24/25 11:50
codeine Allergy Unknown Verified 02/24/25 11:50
Penicillins Allergy Unknown Verified 02/24/25 11:50
�Medication �Instructions �Recorded �Confirmed �Type
acetaminophen 325 mg tablet 650 mg PO Q6HPRN PRN MILD PAIN 02/24/25 02/24/25 History
(Tylenol)
amlodipine 10 mg tablet (Norvasc) 10 mg PO DAILY@139902/24/25 02/24/25 History
duloxetine 30 mg capsule,delayed 30 mg PO DAILY@139902/24/25 02/24/25 History
release
Review of Systems
-
History Source: Patient and Family
All other systems: Negative unless noted
A 10 point review of systems was completed, and was negative except as per HPI.
Physical Exam
Vital Signs
Temp Pulse Resp BP Pulse Ox
98.1 F 75 18 136/71 95
02/25/25 08:17 02/25/25 08:17 02/25/25 08:17 02/25/25 08:17 02/25/25 08:17
02/24/25 02/25/25 02/26/25
06:59 06:59 06:59
Actual Weight 74.9 kg 70.08 kg
Body Mass Index (BMI) 24.2
Lab Results
02/25/25 06:31
02/25/25 06:31
WBC 10.9 10^3/uL (4.8-10.8) H 02/25/25 06:31
Hgb 12.4 g/dL (13.0-18.0) L D 02/25/25 06:31
Hct 35.9 % (39.0-52.0) L 02/25/25 06:31
Plt Count 182 10^3/uL (130-400) 02/25/25 06:31
Abs Immat Gran (auto) 0.1 10^3/uL (0-0.05) H 02/24/25 05:29
Neutrophils % 77.9 % (42.2-75.2) H 02/24/25 05:29
Physical Exam
General: Well Developed and Well Nourished
HEENT: Moist Mucous Membranes
Respiratory: Non Labored Respirations
GI: Soft, Non Distended and Tender (RUQ)
Skin: Warm and Dry
Neuro: Awake, Alert and AO x 3
Psych: Calm
Assessment / Plan
-
Mr. Mccarthy is an 79 yo male with a h/o HTN who presented through the ED last night with RUQ pain which began 4 days ago after a meal and has persisted with poor PO tolerance.
Leukocytosis present on admission and trending down. LFTs initially normal but now rising with bilirubin of 2.1 this am and mild transaminitis. US imaging reviewed as well as CT imaging with concern for acute calculous cholecystitis on both studies.
Positive taylor's sign on US. RUQ tender on exam. Afebrile. VSS.
Plan:
Keep NPO
direct bilirubin added to today's labs
Plan for OR later today for laparoscopic cholecystectomy
Continue IV ABX with IV Zosyn
IVF while NPO
Antiemetics/Analgesics prn
SCDs for vte ppx
--- NOTE | 2025-02-25 13:00 | W.SUR.PREOP ---
Pre-Operative Surgical Note
-
I have examined this patient prior to the performance of the scheduled procedure.
The patient's condition is unchanged from the time of the current History and
Physical and the patient is able to undergo the scheduled procedure.
[2025-02-25] MEDS: TORADOL 15 MG IV (16:28)
--- NOTE | 2025-02-25 16:50 | CM ---
Alert awake oriented patient who lives with his spouse Joe who lives in a 2 story condo with 1 step to enter and 15 steps to bed and bathroom. He is assisted in all activities of daily living.He was offered VN he declined need.No adaptive
devices.
No VN hx / No SNF history
Pharmacy [facility]
PCP DR Ridley
PLAN Home Declined VN
--- NOTE | 2025-02-25 20:01 | W.IMMPOSTOP ---
Surgical Immed Post Op Note
-
Primary Surgeon: Bladimir Forbes MD
Assisting Surgeon: None
Gardening Supervisor: EILEEN Sung
Pre-op Diagnosis: Acute cholecystitis
Post-op Diagnosis: Same
Procedure Performed: Laparoscopic cholecystectomy with intraoperative cholangiogram
Anesthesia Type: General
Specimen / Cultures: Gallbladder and contents
Estimated Blood Loss: 7 cc
Complications: None
Operative Findings: Distended and inflamed gallbladder. Decompressed prior to dissection. Critical view of safety obtained prior to cholangiogram which demonstrated normal biliary anatomy and no distal filling defects. Duct ligated with three 5
mm titanium clips. Both an anterior and posterior cystic artery were identified and clipped. Surgiflo applied to the gallbladder bed due to the inflammation/raw surface oozing from the liver.
POST OP PLAN:
Imaging: None
Labs: Routine AM
Diet: Advance to Regular as tolerated
Analgesia: Tylenol 650mg q6 Joaquín, Dilaudid 0.5mg q2h PRN
Neuro/vascular checks: Per unit
AC/AP: Hold Therapeutic AC, Ok for DVT PPx
Activity: Ad Alda
Wound/Incisions/Drains: Routine
Abx: Continue 24 hours antibiotics, stop on discharge.
Dispo: RNF
[2025-02-26 00:10] VITALS: BP 128/70
[2025-02-26] MEDS: HEPARIN 5000 UNITS SC ×2 (00:17→08:44)
[2025-02-26] MEDS: ZOSYN 100 IV ×2 (00:18→06:11)
--- NOTE | 2025-02-26 02:39 | DOWNTIME ---
There was a [employer] Downtime on 02/26/2025 from 0100 to 02/26/2025 at 0220. Downtime documentation of patient's care, including medication administrations, has been reconciled in the electronic record per guidelines. Refer to the
patient's paper chart under the miscellaneous tab to see printed paper medication records and downtime forms.
[2025-02-26 03:13] VITALS: BP 143/62
[2025-02-26 07:42] LABS: Hematocrit 35.0 % (39.0-52.0); Hemoglobin 12.0 g/dL (13.0-18.0); Mean Corp Hgb Conc. 34.3 g/dL (33.0-37.0); Mean Corpuscular Volume 90.9 fL (80.0-94.0); Nucleated Red Blood Cells % 0 % (-); Platelet Count 179 10^3/uL (130-400); Red Cell Dist. Width 14.6 % (11.5-14.5)
[2025-02-26 07:54] VITALS: BP 142/42
[2025-02-26 08:12] LABS: ALT (SGPT) 103 U/L (0-50); AST (SGOT) 69 U/L (17-59); Albumin 3.4 g/dl (3.5-5.0); Alkaline Phosphatase 130 U/L (38-126); Blood Urea Nitrogen 27 mg/dl (9-20); Calcium 8.8 mg/dl (8.4-10.2); Carbon Dioxide 23 mmol/L (22-30); Chloride 106 mmol/L (98-107); Estimated Creatinine Clearance 39 ml/min; Glucose 101 mg/dl (70-99); Potassium 4.6 mmol/L (3.5-5.1); Sodium 137 mmol/L (135-145); Total Protein 6.0 g/dl (6.3-8.2); eGFR 50.81
[2025-02-26] MEDS: TORADOL 15 MG IV (08:54)
--- NOTE | 2025-02-26 09:11 | W.PN.HOSP.TC ---
Today's Communication/Plan
-
Discharge
Assessment / Plan
Assessment / Plan
Gen-AAOx3, NAD
HEENT-NC, AT, anicteric, clear oral mm
Neck-supple
CV-reg, no M, +S1/S2
Lungs-clear B/L
Abd-soft, tender right upper quadrant with mild guarding
Ext-no edema
Musculoskeletal-no cyanosis, clubbing
Skin-warm and dry
Neuro-grossly non-focal
Psych-calm, cooperative
Acute calculus cholecystitis -stable after laparoscopic cholecystectomy with intraoperative cholangiogram, 02/25. No CBD stones noted. Tolerating regular diet. Currently on Toradol as needed, would discontinue given LORNA and use Ultram as needed.
Discontinue antibiotics on discharge.
LORNA -suspect related to volume depletion and contrast-induced nephropathy. Creatinine starting to trend down, 1.4. Recommend BMP in 1 week. Outpatient follow-up with PCP. Avoid NSAIDs. Discussed with patient.
Essential hypertension -stable.
Hyperparathyroidism
Migraine headaches
Full code
Dispo -medically stable for discharge today. Discussed with surgical service, Dr. Forbes. Follow-up with PCP, general surgery.
32 minutes spent in discharge process.
Anticipated Discharge: Today
Subjective/Interval History
-
Date of Service: February 26, 2025
Patient seen and examined. Complaining of postoperative pain in the abdomen, right shoulder. Tolerated breakfast.
Objective Data
-
Labs:
Laboratory Results
02/26/25
06:30
WBC 10.0
Hgb 12.0 L
Hct 35.0 L
Plt Count 179
Sodium 137
Potassium 4.6
Chloride 106
Carbon Dioxide 23
BUN 27 H
Creatinine 1.4 H
Glucose 101 H
Calcium 8.8
Total Bilirubin 1.2
AST 69 H
ALT 103 H
Alkaline Phosphatase 130 H
Vital Signs:
Vital Signs
Temp Pulse Resp BP Pulse Ox
98.2 F 63 16 142/42 96
02/26/25 07:54 02/26/25 07:54 02/26/25 07:54 02/26/25 07:54 02/26/25 07:54
I&O
02/25/25 02/26/25 02/27/25
06:59 06:59 06:59
Intake Total 0 / 0
Output Total 1035 / 1035
Balance -1035 / -1035
Review of Systems
-
History Source: Patient
All other systems: Reviewed and negative
--- NOTE | 2025-02-26 09:22 | W.DS.TRANS ---
DC Summary - Communication Manager
-
Discharge Instructions:
Sleep Apnea Risk Intermediate
Discharge Diagnosis/Procedures Acute cholecystitis, laparoscopic
cholecystectomy, acute kidney injury
Diet As tolerated
Activity No strenuous activity
Driving Restrictions As prior to admission
Bathing Restrictions OK to Shower
Blood Work BMP on March 01
Instructions:
Stand-Alone Forms:
Changes to Home Medications: No
Discharge Medications:
DC Medications w/original date entered in [facility]
acetaminophen 325 mg tablet (Tylenol) 650 mg PO Q6HPRN PRN MILD PAIN 02/24/25
amlodipine 10 mg tablet (Norvasc) 10 mg PO DAILY@1400 02/24/25
duloxetine 30 mg capsule,delayed release 30 mg PO DAILY@1400 02/24/25
tramadol 50 mg tablet 50 mg PO Q6HPRN PRN severe pain #15 tabs 02/26/25
Home Medication Changes
Pending Results: No
--- NOTE | 2025-02-26 09:56 | CM ---
MD entered order for discharge.
Spoke with patient he said he was ready for discharge
Joe will drive him home.
Offered VN he declined need.
PLAN Home no needs .
--- NOTE | 2025-02-26 16:41 | W.PN.GS2 ---
Today's Communication / Plan
-
Dispo planning
Assessment / Plan
-
This is an 79-year-old male postoperative day 1 from a laparoscopic cholecystectomy for cholecystitis. Doing well, expected postoperative course.
Okay to advance diet.
Can stop antibiotics on discharge.
Cleared from a surgery perspective for discharge today.
Time Spent
Total Time Spent with Patient (in minutes): 20
Subjective Data
-
Date of Service: February 26, 2025
Interval Events:
No acute events overnight. Slept well. Pain Controlled. Denies Nausea/Vomiting, +bowel function. Tolerating diet.
Objective Data
-
Intake and Output
02/25/25 02/26/25 02/27/25
06:59 06:59 06:59
Intake Total 0 / 0
Output Total 1035 / 1035
Balance -1035 / -1035
Intake:
Oral fluids 0 / 0
Output:
Urine, Voided 1035 / 1035
Vital Signs
Temp Pulse Resp BP Pulse Ox
98.2 F 63 16 142/42 96
02/26/25 07:54 02/26/25 07:54 02/26/25 07:54 02/26/25 07:54 02/26/25 07:54
Lab Results
02/26/25 06:30
02/26/25 06:30
Calcium 8.8 mg/dl (8.4-10.2) 02/26/25 06:30
Total Bilirubin 1.2 mg/dl (0.2-1.3) 02/26/25 06:30
Direct Bilirubin 0.5 mg/dl (0.0-0.4) H 02/25/25 06:31
AST 69 U/L (17-59) H 02/26/25 06:30
ALT 103 U/L (0-50) H 02/26/25 06:30
Alkaline Phosphatase 130 U/L (38-126) H 02/26/25 06:30
Total Protein 6.0 g/dl (6.3-8.2) L 02/26/25 06:30
Albumin 3.4 g/dl (3.5-5.0) L 02/26/25 06:30
Physical Exam
-
GENERAL/NEURO: Awake, Alert, no distress
CHEST: Unlabored breathing on RA
ABDOMEN: Soft, Non-Tender, Non-Distended, incisions clean dry and intact.
Patient has a vergara catheter: No
Patient has a central line: No
--- NOTE | 2025-02-28 14:18 | OR.RPT ---
Operative Report
Operative Report
Patient Name: Gerardo Mccarthy
: 1945
Date of Operation: 02/25/2025
Preoperative Diagnosis: Acute cholecystitis
Postoperative Diagnosis: Same
Procedure(s):
Laparoscopic Cholecystectomy with Cholangiogram
Surgeon(s):
Dr. Forbes
Hearing Instrument Specialist(s):
EILEEN Sung
Anesthesia: General
Estimated Blood Loss: 7 cc
Urine Output: None
Drains/Lines/Implants: None
Specimens:
1. Gallbladder and contents
HPI/Surgical Indications:
This is a 79-year-old male who presents with A 4-day history of postprandial right upper quadrant abdominal pain. Exam, labs and imaging are consistent with acute cholecystitis. Risks/Benefits/Alternatives were discussed at length, and the patient
agreed to proceed with surgery.
Operative Findings: Distended and inflamed gallbladder. Decompressed prior to dissection. Critical view of safety obtained prior to cholangiogram which demonstrated normal biliary anatomy and no distal filling defects. Duct ligated with three 5
mm titanium clips. Both an anterior and posterior cystic artery were identified and clipped. Surgiflo applied to the gallbladder bed due to the inflammation/raw surface oozing from the liver.
Procedure Description:
The patient was brought to the Operating Room and placed in the supine position with one arm tucked. Following uneventful induction of general endotracheal anesthesia, an orogastric tube was placed. The abdomen was prepped and draped in the usual
sterile fashion. A timeout was performed confirming the procedure, consent, and that IV antibiotics were infused and sequential compression devices were confirmed to be on. The abdomen was entered using an infraumbilical open Maye technique with
a 12 mm balloon-tipped trocar. Pneumoperitoneum to 15 mmHg pressure was obtained without difficulty and we confirmed that no injury had occurred during our entry. The patient was positioned in reverse Trendelenberg and rotated with the right side
up slightly. Three (3) 5mm trocars were then placed along the right subcostal margin. The gallbladder was emptied using a decompressing needle through the fundus of the gallbladder with evacuation of hydrops before A locking grasping forceps was
placed on the fundus of the gallbladder where it was then retracted cephalad and to the right. Using appropriate grasping instruments, the peritoneum overlying the triangle of Calot was incised and extended superiorly on both the anterior and
posterior gallbladder dasilva. The infundibulum was dissected off the cystic plate. The cystic triangle was dissected until a critical view of safety was achieved. The cystic artery was medialized, dissected and controlled with 2 proximal clips and 1
distal. The cystic duct/gallbladder junction in turn was identified, dissected circumferentially and a clip was placed. A ductotomy was made and a cholangiocatheter on an Meeks clamp was inserted into the cystic duct. A C-arm was draped and brought
into the field. An intra-operative cholangiogram was performed and was noted to have:
No filling defects in the biliary tree
No significant biliary dilation
Brisk flow of contrast into the duodenum
Normal biliary anatomy
The catheter was then removed and the cystic duct was controlled with two clips. After ensuring both the artery and duct were divided, the gallbladder was freed from the liver using electrocautery. There was some spillage of bile, but no spillage
of stones. The gallbladder bed was inspected and excellent hemostasis was obtained. The gallbladder was extracted through the 12 mm trocar site using an endocatch bag. The abdomen was again irrigated and excellent hemostasis was assured. All
remaining trocars were then removed and the pneumoperitoneum was evacuated. The 12 mm trocar site was closed using 0 PDS suture. All trocar sites were closed at the skin level using 4-0 Monocryl followed by Dermabond. Overall, the patient
tolerated the procedure well and was taken to the Recovery Room postoperatively in stable condition.
I was the attending physician and performed the procedure with assistance from the RESTAURANT COOK above. I was present for all portions of the case, excluding skin closure.
Bladimir Forbes MD
== END 2025-02-26 10:31 | disposition home or self-care (01) | DRG 418 ==
LOC: 4 EAST ACU 15:27
PROVIDERS: Emergency Medicine; Internal Medicine; Registered Nurse; ADMITTING PHYSICIAN Internal Medicine; ATTENDING PHYSICIAN Hospitalist; EMERGENCY PHYSICIAN Student in an Organized Health Care Education/Training Program; FAMILY PHYSICIAN Internal Medicine Geriatric Medicine; OTHER PHYSICIAN Surgery
PROC: BF131ZZ Fluoroscopy of Gallbladder and Bile Ducts using Low Osmolar Contrast (ICD-10-PCS; 2025-02-25)
PROC: 0FT44ZZ Resection of Gallbladder, Percutaneous Endoscopic Approach (ICD-10-PCS; 2025-02-25)
DX: K80.00 Calculus of gallbladder with acute cholecystitis without obstruction (principal); N17.8 Other acute kidney failure; I10 Essential (primary) hypertension; I48.91 Unspecified atrial fibrillation; E78.5 Hyperlipidemia, unspecified; N14.11 Contrast-induced nephropathy; T50.8X5A Adverse effect of diagnostic agents, initial encounter; Y92.239 Unspecified place in hospital as the place of occurrence of the external cause; I34.0 Nonrheumatic mitral (valve) insufficiency; M54.50 Low back pain, unspecified; M06.9 Rheumatoid arthritis, unspecified; F32.A Depression, unspecified; R74.01 Elevation of levels of liver transaminase levels; E21.3 Hyperparathyroidism, unspecified; G43.909 Migraine, unspecified, not intractable, without status migrainosus; M54.16 Radiculopathy, lumbar region; E86.9 Volume depletion, unspecified; M19.012 Primary osteoarthritis, left shoulder; M50.90 Cervical disc disorder, unspecified, unspecified cervical region; Z88.5 Allergy status to narcotic agent; Z88.0 Allergy status to penicillin; Z88.8 Allergy status to other drugs, medicaments and biological substances; Z87.891 Personal history of nicotine dependence; Z79.01 Long term (current) use of anticoagulants; Z87.19 Personal history of other diseases of the digestive system
CPT/HCPCS: 74177; 74300; 76000; 76705; 80053; 82248; 83690; 84484; 85025; 85027; 85610; 87040; 88304; 93005; 96365; 96375; 99285; A4300; Q9967

== ENCOUNTER 2025-03-01 08:52 | Emergency (ER) | payer OTHER, SELFPAY ==
[2025-03-01 08:57] VITALS: BP 159/81
[2025-03-01 09:00] VITALS: BP 159/81
--- NOTE | 2025-03-01 09:02 | ED.GENMED ---
History of Present Illness
<Davin Bernardo MD, Resident - Last Filed: 03/01/25 12:46>
General
Chief Complaint: Flank Pain
Source: patient
Exam Limitations: none
Time Seen by Provider: 03/01/25 08:54
Nursing documentation reviewed up to this point in time: agreed with
History of Present Illness
History of Present Illness:
This is a 79-year-old male with known history of hypertension, hyperlipidemia, A-fib, mitral regurgitation and stenosis, RA, depression, chronic low back pain presents in the emergency department with complaint of left flank pain which started
suddenly around 7 in the morning. 05/17. Unsure of aggravating and relieving factors, sharp in nature. He denies any fevers or chills, denies any constipation diarrhea, denies any urinary symptoms, denies any chest pain or trouble breathing, denies
any rashes. Denies any history of renal stones.
He was recently hospitalized last week when he received laparoscopic cholecystectomy on 02/25. During his stay he also had LORNA and his creatinine went up from 1.0-1.5 however it was 1.4 upon discharge. He was instructed to repeat BMP on 03/01 which
is today and unfortunately he developed this acute left flank pain which prompted him to visit the emergency department.
Past History
<Davin Bernardo MD, Resident - Last Filed: 03/01/25 12:46>
Past History
ED Past Medical History: Arrthythmia, HTN (Borderline hypertension), Psychiatric (Depression) and Other (Back pain, cervical disc disease, left shoulder arthritis)
ED Past Surgical History: Tonsilectomy and Other (Carpal tunnel,)
Patient has exhibited threatening behavior?: No
Social History
Tobacco: Former smoker
Alcohol: Occasional
Drug: None
Personal: Partner
Living: with family (WITH )
Employment: Retired
Family History
Family History: Other (Noncontributory)
Review of Systems
<Davin Bernardo MD, Resident - Last Filed: 03/01/25 12:46>
Review of Systems
Allergies reviewed?: Yes
Constitutional: Denies fever or chills
EENT: Denies sore throat
Respiratory: Denies cough
Cardiac: Denies chest pain
ABD/GI: Reports nausea; Denies vomiting or diarrhea
: Reports flank pain (Left); Denies dysuria
Musculoskeletal: Denies joint pain
Skin: Denies itching
Neurological: Denies dizzy
Endocrine: Denies polyuria
Hematologic/Lymphatic: Denies bleeding
Phy Exam
<Davin Bernardo MD, Resident - Last Filed: 03/01/25 12:46>
General Physical Exam
General Presentation: mild distress
General age: appears stated age
General Skin: warm
General Habitus: normal
General Mental: alert
General Hydration: appears well hydrated
Cardiovascular Exam
Cardiovascular Exam: regular rate/rhythm
Pulmonary Exam
Pulmonary Exam: lungs clear and no cough
Gastrointestinal Exam
Gastrointestinal Exam: soft, non distended, cva tenderness (left) and tender (Left lumbar quadrant)
Musculoskeletal Exam
Musculoskeletal Exam: neuro vasc intact
Course
<Davin Bernardo MD, Resident - Last Filed: 03/01/25 12:46>
Orders/Labs/Results
Orders:
Orders
03/01/25 09:10
0.9% Sodium Chloride 1000 ml [Nss] 1,000 ml IV BOLUS
HYDROmorphone [Dilaudid] 0.5 mg IV NOW STA
Ondansetron HCl [Zofran] 4 mg PO NOW STA
03/01/25 09:14
Complete Blood Count/With Diff Urgent
03/01/25 09:18
Add On- LAB Urgent
Tests Added?: Lipase
03/01/25 10:08
Urinalysis Reflex To Culture Urgent
Date Specimen was Collected: 03/01/25
Time Specimen was Collected: 10:05
03/01/25 10:10
Basic Metabolic Panel Urgent
Lipase Urgent
03/01/25 11:06
CT Abd/pelvis W Iv Cont Urgent
Comment:
Reason For Exam: flank pain
03/01/25 12:37
HYDROmorphone [Dilaudid] 0.5 mg IV NOW STA
03/01/25 12:38
Tamsulosin [Flomax] 0.4 mg PO NOW STA
Abnormal Lab Results
03/01/25 03/01/25
09:14 10:10
RBC 4.02 L 10^6/uL
(4.70-6.10)
Hgb 12.4 L g/dL
(13.0-18.0)
Hct 37.1 L %
(39.0-52.0)
RDW 14.9 H %
(11.5-14.5)
Absolute Monos (auto) 0.7 H 10^3/uL
(0.1-0.6)
Chloride 108 H mmol/L
(98-107)
Glucose 124 H mg/dl
(70-99)
03/01/25 09:14
03/01/25 10:10
Vital Signs
Initial and Last Documented VS:
Initial Vital Signs
Temp Pulse Resp BP Pulse Ox
97.9 F 71 16 159/81 98
03/01/25 08:57 03/01/25 08:57 03/01/25 08:57 03/01/25 08:57 03/01/25 08:57
Last Documented Vital Signs
Temp Pulse Resp BP Pulse Ox
97.9 F 70 17 159/81 94
03/01/25 08:57 03/01/25 09:30 03/01/25 09:30 03/01/25 09:00 03/01/25 09:30
<Jono Wick MD - Last Filed: 03/01/25 09:49>
Orders/Labs/Results
Orders:
Orders
03/01/25 09:10
0.9% Sodium Chloride 1000 ml [Nss] 1,000 ml IV BOLUS
HYDROmorphone [Dilaudid] 0.5 mg IV NOW STA
Ondansetron HCl [Zofran] 4 mg PO NOW STA
03/01/25 09:14
Complete Blood Count/With Diff Urgent
03/01/25 09:18
Add On- LAB Urgent
Tests Added?: Lipase
03/01/25 10:08
Urinalysis Reflex To Culture Urgent
Date Specimen was Collected: 03/01/25
Time Specimen was Collected: 10:05
03/01/25 10:10
Basic Metabolic Panel Urgent
Lipase Urgent
03/01/25 11:06
CT Abd/pelvis W Iv Cont Urgent
Comment:
Reason For Exam: flank pain
03/01/25 12:37
HYDROmorphone [Dilaudid] 0.5 mg IV NOW STA
03/01/25 12:38
Tamsulosin [Flomax] 0.4 mg PO NOW STA
Abnormal Lab Results
03/01/25 03/01/25
09:14 10:10
RBC 4.02 L 10^6/uL
(4.70-6.10)
Hgb 12.4 L g/dL
(13.0-18.0)
Hct 37.1 L %
(39.0-52.0)
RDW 14.9 H %
(11.5-14.5)
Absolute Monos (auto) 0.7 H 10^3/uL
(0.1-0.6)
Chloride 108 H mmol/L
(98-107)
Glucose 124 H mg/dl
(70-99)
03/01/25 09:14
03/01/25 10:10
Vital Signs
Initial and Last Documented VS:
Initial Vital Signs
Temp Pulse Resp BP Pulse Ox
97.9 F 71 16 159/81 98
03/01/25 08:57 03/01/25 08:57 03/01/25 08:57 03/01/25 08:57 03/01/25 08:57
Last Documented Vital Signs
Temp Pulse Resp BP Pulse Ox
97.9 F 70 17 159/81 94
03/01/25 08:57 03/01/25 09:30 03/01/25 09:30 03/01/25 09:00 03/01/25 09:30
<Davin Bernardo MD, Resident - Last Filed: 03/01/25 12:46>
MDM/Problems Addressed
Differential Diagnosis Includes:
Renal stone vs UTI vs diverticulitis vs less likely pancreatitis
MDM/Problems Addressed:
Check CBC, CMP and urinalysis and Lipase
IV fluid 1 L normal saline bolus
1 dose of IV 0.5 Dilaudid
1 dose of IV Zofran 4 mg
Will wait for creatinine before considering contrast study as there is a possibility that he still has LORNA and we might not be able to do the CT with contrast
update:
Urinalysis unremarkable
Patient noticed improvement in pain after Dilaudid
Due to blood being hemolyzed could not get the metabolic panel. Nurse will perform another blood draw to get the results.
Update 11:55: CBC with borderline low hemoglobin of 12.4 otherwise unremarkable, BMP with slightly elevated blood glucose otherwise unremarkable
Serum lipase within normal limits
update: 12:26
CT with Mild LEFT hydronephrosis and hydroureter, which appears to be new compared to the recent prior study with new perinephric and periureteral stranding suspicious for obstructing calculus or recently passed calculus. There is a questionable
punctate stone within the distal ureter at the pelvic brim which could be a source of obstruction.
Will give 1 dose of Flomax in the ER
1 dose of IV Dilaudid for discharge
Shared decision was made to discharge home with instructions to drink plenty of fluids. Use strainer for urine. Can use Tylenol for pain. A prescription of Flomax was also sent upon discharge to the pharmacy.
Return precautions reviewed. Patient and his partner verified understanding and agreed with the plan.
Chronic conditions affecting care: Arrhythmia
<Davin Bernardo MD, Resident - Last Filed: 03/01/25 12:46>
*Pulse Oximetry
SaO2: 98
Oxygen Mode of Delivery: Room air
Patient hypoxic: no
*Critical Care Note
Total Time (30-74mins, 75-104mins- exclusive of procedures): Not Applicable
ED Attending Note
<Davin Bernardo MD, Resident - Last Filed: 03/01/25 12:46>
-
Portions of this chart may have been created with voice recognition software.� Occasional wrong word or��sound alike� substitutions may have occurred due to the inherent limitations of voice recognition software.
<Jono Wick MD - Last Filed: 03/01/25 09:49>
ED Attending Note
Patient seen and examined by attending physician: Yes
I performed a history and physical exam of patient and discussed management with resident, I reviewed resident's note and agree with documented findings and plan of care.: Yes
ED Attending Note:
I have seen and evaluated the patient with a ikia-re-dixl encounter. I have spoken to the resident and involved in the medical history, the physical exam, medical decision making.
Evaluation and management service: agree unless noted differently below.
Results interpretation: agree unless noted differently below.
Focused HPI: 79-year-old male with history as noted presents to the ER for evaluation of flank pain. Patient was just admitted to this hospital 02/24 until 02/26, had acute cholecystitis and underwent laparoscopic cholecystectomy 02/25 with
Andrei. He was discharged on tramadol. He says that since discharge she has had progressive pain in the left flank that became significantly worse this morning. He reports dull aching pain in the left flank that radiates towards the left upper
abdomen. He reports associated nausea but no vomiting. He has had some mild constipation. Denies urinary symptoms. Denies fever.
Physical exam: Awake and alert appears mildly uncomfortable. Hypertensive but otherwise normal vitals. His abdomen is soft, mild diffuse tenderness. Laparoscopic incisions appear intact without dehiscence or signs of infection. He has no CVA
tenderness but he does have some tenderness in the paraspinal musculature of the lower thoracic region.
Medical Decision Makin-year-old male presents with left flank pain after recent cholecystectomy. Vitals and exam as above. Will check labs including a CBC and a CMP, lipase. Will check urinalysis. Will check CT abdomen pelvis. Treat
symptomatically. Reassess after the above.
Discharge Plan
Departure
Patient Disposition: Home (Routine Discharge)
Date of Disposition: 03/01/25
Time of Disposition: 12:40
Patient with high blood pressure during this ER visit?: Yes
Condition: Fair
Discharge Problem:
Acute flank pain, Left renal stone
Instructions: Kidney Stones (DC), Flank Pain (DC), How to Strain Your Urine, BLOOD PRESSURE
Prescriptions:
New
tamsulosin [Flomax] 0.4 mg capsule
0.4 mg PO DAILY Qty: 14 0RF
No Action
acetaminophen [Tylenol] 325 mg Tablet
650 mg PO Q6HPRN PRN (Reason: MILD PAIN)
amlodipine [Norvasc] 10 mg Tablet
10 mg PO DAILY@1400
duloxetine 30 mg Capsule,Delayed Release(Dr/Ec)
30 mg PO DAILY@1400
tramadol 50 mg Tablet
50 mg PO Q6HPRN PRN (Reason: severe pain) Qty: 15 0RF
Referrals:
Zane Mcnair MD [Active, Urology] - As needed
Cooper Ridley MD [Family Provider, Internal Medicine] - Follow up in 1 week
Activity Restrictions/Additional Instructions:
You were seen in the [facility] emergency department with concerns of left flank pain. While you were in the emergency department we performed blood work which included complete blood count, complete metabolic panel and serum lipase,
urinalysis is most of your blood work came back unremarkable. You received 2 doses of IV 0.5 mg Dilaudid, IV dose of Zofran [address] showed mild LEFT hydronephrosis and hydroureter, which appears to be new compared to the recent prior study with
new perinephric and periureteral stranding suspicious for obstructing calculus or recently passed calculus. There is a questionable punctate stone within the distal ureter at the pelvic brim which could be a source of obstruction.You were given 1
dose of Flomax in the ER. A prescription for Flomax was also sent to the pharmacy to be used at home for next 2 weeks to help pass the stone. You may use Tylenol for pain, drink plenty of fluids, strain your urine instructions are attached with
this paperwork, if you develop any new symptoms or any worrisome concerns please return to the emergency. You may also follow-up with outpatient urology information is attached with this paperwork. Please follow-up with your family doctor in 1
week.
Interventions
Interventions:
*Risk Screen - Suicide Last Done: 03/01/25 08:57
*General Assessment Last Done: 03/01/25 09:01
*Neglect/Abuse Screening Last Done: 03/01/25 08:57
*ED- Fall Risk Assessment Last Done: 03/01/25 09:01
*ED COVID-19 Vaccine History Last Done: 03/01/25 09:01
NH-Xyscac-Swarbcvsrh Assessment Last Done: 03/01/25 10:38
ED-Male Genitourinary Assessment Last Done: 03/01/25 10:38
Discharge Date and Time
Print Language: UPPER SORBIAN
[2025-03-01] MEDS: DILAUDID 0.5 MG IV ×2 (09:19→12:41)
[2025-03-01] MEDS: ZOFRAN 4 MG PO (09:19)
[2025-03-01] MEDS: NSS 1000 IV (09:21)
[2025-03-01 09:25] LABS: Hematocrit 37.1 % (39.0-52.0); Hemoglobin 12.4 g/dL (13.0-18.0); Mean Corp Hgb Conc. 33.4 g/dL (33.0-37.0); Mean Corpuscular Volume 92.3 fL (80.0-94.0); Nucleated Red Blood Cells % 0 % (-); Platelet Count 235 10^3/uL (130-400); Red Cell Dist. Width 14.9 % (11.5-14.5)
[2025-03-01 10:22] LABS: Urine Character Clear (Clear)
[2025-03-01 11:04] LABS: Blood Urea Nitrogen 18 mg/dl (9-20); Calcium 8.8 mg/dl (8.4-10.2); Carbon Dioxide 22 mmol/L (22-30); Chloride 108 mmol/L (98-107); Glucose 124 mg/dl (70-99); Lipase 124 U/L (23-300); Potassium 3.5 mmol/L (3.5-5.1); Sodium 137 mmol/L (135-145); eGFR > 60.00
[2025-03-01] MEDS: FLOMAX 0.4 MG PO (12:42)
[2025-03-01 13:33] VITALS: BP 155/88
== END 2025-03-01 14:14 | disposition home or self-care (01) ==
LOC: EMR 08:52
PROVIDERS: EMERGENCY PHYSICIAN Emergency Medicine; FAMILY PHYSICIAN Internal Medicine Geriatric Medicine
DX: R10.9 Unspecified abdominal pain (principal); N20.0 Calculus of kidney; I10 Essential (primary) hypertension; E78.00 Pure hypercholesterolemia, unspecified; I48.91 Unspecified atrial fibrillation; I34.0 Nonrheumatic mitral (valve) insufficiency; M06.9 Rheumatoid arthritis, unspecified; F32.A Depression, unspecified; N17.9 Acute kidney failure, unspecified; Z87.891 Personal history of nicotine dependence; Z90.49 Acquired absence of other specified parts of digestive tract
CPT/HCPCS: 99284; 96374; 96376; 96361; 74177; 80048; 81003; 83690; 85025; Q9967

== ENCOUNTER 2025-03-04 22:39 | Inpatient (IN) | payer OTHER, SELFPAY ==
[2025-03-04 15:53] VITALS: BP 125/75
[2025-03-04 16:14] LABS: Hematocrit 37.0 % (39.0-52.0); Hemoglobin 12.5 g/dL (13.0-18.0); Mean Corp Hgb Conc. 33.8 g/dL (33.0-37.0); Mean Corpuscular Volume 90.7 fL (80.0-94.0); Nucleated Red Blood Cells % 0 % (-); Platelet Count 373 10^3/uL (130-400); Red Cell Dist. Width 14.5 % (11.5-14.5)
[2025-03-04 16:33] LABS: ALT (SGPT) 30 U/L (0-50); AST (SGOT) 20 U/L (17-59); Albumin 3.9 g/dl (3.5-5.0); Alkaline Phosphatase 128 U/L (38-126); Blood Urea Nitrogen 28 mg/dl (9-20); Calcium 9.6 mg/dl (8.4-10.2); Carbon Dioxide 24 mmol/L (22-30); Chloride 99 mmol/L (98-107); Glucose 115 mg/dl (70-99); Lipase 90 U/L (23-300); Potassium 4.0 mmol/L (3.5-5.1); Sodium 132 mmol/L (135-145); Total Protein 6.8 g/dl (6.3-8.2); eGFR 29.54
--- NOTE | 2025-03-04 18:01 | ED.GENMED ---
History of Present Illness
General
Chief Complaint: Flank Pain
Source: patient and spouse
Time Seen by Provider: 03/04/25 17:59
History of Present Illness
History of Present Illness:
Note:
CHIEF COMPLAINT(S)
Kidney stone and associated discomfort.
HISTORY OF PRESENT ILLNESS
The patient is an 79-year-old male with a recent diagnosis of a kidney stone, discovered last Tuesday. He has been experiencing significant pain, prompting a visit to the primary care physicians office, which was closed on Tuesday. Consequently,
alternative guidance was sought telephonically, advising him to modify his current medication regimen. The patient reports not having urinated significantly in the past four hours and notes a sensation of discomfort that exacerbates, particularly
when trying to urinate. He also mentioned the onset of pain beginning Tuesday morning, which led to calling for emergency medical services. Currently, his creatinine levels have increased to 2.2, and he has not eaten substantial food in the past
four to five days, only consuming minimal chicken broth.
PHYSICAL EXAM
- General Appearance: Patient appears uncomfortable.
- Head, Eyes, Ear, Nose, and Throat: Atraumatic.
- Cardiovascular: Heart sounds S1, S2, without murmurs or additional sounds.
- Abdomen: Soft, nondistended with no tenderness.
- Musculoskeletal: Extracellular muscles unremarkable.
Nursing notes reviewed and vital signs reviewed.
PROBLEM LIST
- Acute: Kidney Stone, Elevated Creatinine, Decreased Urinary Output.
PLAN
A computed tomography scan will be reviewed today to assess the situation further. The patient needs to provide a urine sample for examination. Due to the current state and findings, the plan is to keep the patient in the hospital overnight for
monitoring and further management.
DIFFERENTIAL DIAGNOSIS
The Differential Diagnosis includes, in no particular order and is not limited to:
1. Nephrolithiasis
2. Urinary Tract Infection
3. Acute Kidney Injury
4. Bladder Outlet Obstruction
5. Dehydration
6. Pyelonephritis
7. Renal Cell Carcinoma
8. Obstructive Uropathy
9. Prostatitis
10. Non-specific Abdominal Pain
CARE-UPDATE
03/04/25 - 21:27
CT scan shows most likely hydronephrosis without identified kidney stone; there is fat stranding around the left kidney suggestive of possible pyelonephritis. Despite an unremarkable urinalysis, treatment with cefepime has been initiated. Plan to
admit under hospitalists for acute renal failure, possible pyelonephritis, and hydronephrosis. Ibuprofen ordered for pain management.
Disposition:
SUMMARY OF ENCOUNTER
The patient, an 79-year-old male, was seen in the emergency department due to a significant kidney stone causing discomfort and limited urinary output. Initial evaluation showed elevated creatinine levels, suggesting acute renal failure. Although
the CT scan did not reveal a visible kidney stone, hydronephrosis was noted, along with signs suggestive of pyelonephritis. Despite an unremarkable urinalysis, treatment with cefepime was initiated for possible pyelonephritis and pain management.
DISPOSITION
Admit to hospitalist.
MANAGEMENT OF THE PATIENTS CARE WAS DISCUSSED WITH
Hospitalist for acute renal failure, possible pyelonephritis, and hydronephrosis management.
PLAN
The patient will be admitted to the hospital for overnight monitoring and further management, including intravenous antibiotics for possible pyelonephritis and pain control.
INDEPENDENT REVIEW OF LABS AND INTERPRETATION OF TESTS
My independent review of BMP indicates elevated creatinine levels.
My independent interpretation of the CT scan shows likely hydronephrosis without an identified kidney stone and suggests possible pyelonephritis due to fat stranding around the left kidney.
MEDICATION RECONCILIATION
Cefepime prescribed for suspected pyelonephritis treatment. Ibuprofen ordered for pain management.
MEDICAL DECISION MAKING
-Complexity of Data Reviewed: Chronic conditions affecting care include recent kidney stone diagnosis, elevated creatinine, decreased urinary output. Differential diagnosis includes nephrolithiasis, urinary tract infection, acute kidney injury,
bladder outlet obstruction, dehydration, pyelonephritis, renal cell carcinoma, obstructive uropathy, prostatitis, and non-specific abdominal pain.
-Data:
Category [address] scan was reviewed independently, identifying hydronephrosis and signs suggestive of pyelonephritis.
Category 3
Discussion of management with the hospitalist regarding admission for acute renal failure and possible pyelonephritis.
-Risk:
Admission for monitoring due to elevated risk of complications from acute renal failure and potential pyelonephritis.
DIAGNOSIS
Acute Renal Failure - ICD-10-CM N17.9
Hydronephrosis - ICD-10-CM N13.2
Possible Pyelonephritis - ICD-10-CM N10
Past History
Past History
ED Past Medical History: Arrthythmia, HTN (Borderline hypertension), Psychiatric (Depression) and Other (Back pain, cervical disc disease, left shoulder arthritis)
ED Past Surgical History: Tonsilectomy and Other (Carpal tunnel,)
Patient has exhibited threatening behavior?: No
Social History
Tobacco: Former smoker
Alcohol: Occasional
Drug: None
Personal: Partner
Living: with family (WITH )
Employment: Retired
Family History
Family History: Other (Noncontributory)
Phy Exam
Physical Exam
Physical Exam:
.
Course
Orders/Labs/Results
Orders:
Orders
03/04/25 16:07
Complete Blood Count/With Diff Urgent
Comprehensive Metabolic Panel Urgent
Lipase Urgent
03/04/25 18:17
CT Abd/pel Without Iv Or Oral Urgent
Comment:
Reason For Exam: left flank pain
03/04/25 19:38
Urinalysis Reflex To Culture Urgent
Date Specimen was Collected: 03/04/25
Time Specimen was Collected: 19:36
Urine Microscopic Reflex Cult Urgent
03/04/25 20:30
Morphine Sulfate 4 mg IV NOW STA
Ondansetron Injectable [Zofran] 4 mg IV NOW STA
03/04/25 21:25
Cefepime HCl [Maxipime] 2,000 mg IV NOW STA
03/04/25 21:27
0.9% Sodium Chloride 1000 ml [Nss] 1,000 ml IV BOLUS
Abnormal Lab Results
03/04/25 03/04/25
16:07 19:38
WBC 19.5 H 10^3/uL
(4.8-10.8)
RBC 4.08 L 10^6/uL
(4.70-6.10)
Hgb 12.5 L g/dL
(13.0-18.0)
Hct 37.0 L %
(39.0-52.0)
Abs Immat Gran (auto) 0.2 H 10^3/uL
(0-0.05)
Absolute Neuts (auto) 15.7 H 10^3/uL
(1.4-6.5)
Absolute Monos (auto) 1.8 H 10^3/uL
(0.1-0.6)
Immature Gran % 0.9 H %
(0-0.5)
Neutrophils % 80.4 H %
(42.2-75.2)
Lymphocytes % 8.9 L %
(20.5-51.1)
Monocytes % 9.4 H %
(1.7-9.3)
Sodium 132 L mmol/L
(135-145)
BUN 28 H mg/dl
(9-20)
Creatinine 2.2 H mg/dL
(0.7-1.3)
Glucose 115 H mg/dl
(70-99)
Alkaline Phosphatase 128 H U/L
(38-126)
Urine Ketones 1+ A
(Negative)
Urine Bacteria (Reflex) Few A
(Negative)
Urine Albumin (Reflex) 2+ A
(Neg - Trace)
03/04/25 16:07
03/04/25 16:07
Vital Signs
Initial and Last Documented VS:
Initial Vital Signs
Temp Pulse Resp BP Pulse Ox
98.1 F 88 16 125/75 96
03/04/25 15:53 03/04/25 15:53 03/04/25 15:53 03/04/25 15:53 03/04/25 15:53
Last Documented Vital Signs
Temp Pulse Resp BP Pulse Ox
98.1 F 88 16 125/75 96
03/04/25 15:53 03/04/25 15:53 03/04/25 15:53 03/04/25 15:53 03/04/25 18:02
*Pulse Oximetry
SaO2: 96
Oxygen Mode of Delivery: Room air
Patient hypoxic: no
*Critical Care Note
Total Time (30-74mins, 75-104mins- exclusive of procedures): Not Applicable
ED Attending Note
-
Portions of this chart may have been created with voice recognition software.� Occasional wrong word or��sound alike� substitutions may have occurred due to the inherent limitations of voice recognition software.
Discharge Plan
Departure
Patient Disposition: Admit
Date of Disposition: 03/04/25
Time of Disposition: 21:22
Admit to: Med/Surg
Presentation/result/management discussed w/ accepting MD/DO: Hospitalist
Patient with high blood pressure during this ER visit?: Yes
Condition: Fair
Discharge Problem:
Acute renal failure, Acute pyelonephritis, Hydronephrosis
Prescriptions:
No Action
acetaminophen [Tylenol] 325 mg Tablet
650 mg PO Q6HPRN PRN (Reason: MILD PAIN)
amlodipine [Norvasc] 10 mg Tablet
10 mg PO DAILY@1400
duloxetine 30 mg Capsule,Delayed Release(Dr/Ec)
30 mg PO DAILY@1400
tramadol 50 mg Tablet
50 mg PO Q6HPRN PRN (Reason: severe pain) Qty: 15 0RF
tamsulosin [Flomax] 0.4 mg capsule
0.4 mg PO DAILY Qty: 14 0RF
Referrals:
Cooper Ridley MD [Family Provider, Internal Medicine]
Interventions
Interventions:
*Risk Screen - Suicide Last Done: 03/04/25 18:08
*General Assessment Last Done: 03/04/25 18:08
*Neglect/Abuse Screening Last Done: 03/04/25 18:08
*ED- Fall Risk Assessment Last Done: 03/04/25 18:08
*ED COVID-19 Vaccine History Last Done: 03/04/25 18:08
SJ-Dtecbu-Sqwvilgrjz Assessment Last Done: 03/04/25 18:08
ED-Male Genitourinary Assessment Last Done: 03/04/25 18:08
Discharge Date and Time
Print Language: SLOVENIAN
[2025-03-04 19:47] LABS: Urine Character Clear (Clear)
[2025-03-04 19:58] LABS: Urine Red Blood Cell 0-2 /HPF (0-2); Urine Squamous Cell 0-2 /LPF (Few); Urine White Cell 0-2 /HPF (0-5)
[2025-03-04] MEDS: ZOFRAN 4 MG IV (20:36)
[2025-03-04] MEDS: MORPHINE SULFATE 4 MG IV (20:40)
[2025-03-04] MEDS: MAXIPIME 2000 MG IV (21:51)
[2025-03-04] MEDS: NSS 1000 IV ×2 (21:52→23:34)
--- NOTE | 2025-03-04 22:00 | HPS.HSE ---
Family Physician
-
Family Physician: Cooper Ridley
Chief Complaint
-
left flank pain
History of Present Illness
79-year-old male past medical history of carpal tunnel, chronic back pain status post surgery, hypertension, presenting with severe left-sided flank pain radiating to his left testicle over the past several days. History obtained from his .
He had laparoscopic cholecystectomy on 02/25 and has residual abdominal pain after recovery from this. A few days after he developed pain in his left flank and came to the emergency room and had a CT scan which showed mild left hydronephrosis and
hydroureter, perinephric stranding suspicious for obstructing calculus or recently passed calculus. She was discharged home on pain medication. The pain continued to occur and he saw his primary care physician who recommended he come to the
emergency room.
He denies any prior history of nephrolithiasis.
He did have some nausea and vomiting. Denies fevers or chills. Denies blood in the urine or burning with urination.
He denies smoking or alcohol use.
Medical History
Past Medical History
Past Medical History: Reports Other (carpal tunnel, chronic back pain status post surgery, hypertension)
Past Surgical History: Reports Cholecystectomy
Social History
Tobacco: Non-smoker
Alcohol: None
Drug: None
Family History
Family History: Not pertinent
Allergies / Home Medications
Allergies reflects when Allergies were last updated in [employer].
Home Medications with original date entered in [employer]
Allergy/Medication List:
Allergies
Allergy/AdvReac Type Severity Reaction Status Date / Time
clonazepam AdvReac doesn't Verified 03/04/25 15:58
work for
him per
family
Home Medications
acetaminophen 325 mg tablet (Tylenol) 650 mg PO Q6HPRN PRN MILD PAIN 02/24/25
amlodipine 10 mg tablet (Norvasc) 10 mg PO DAILY@1400 02/24/25
duloxetine 30 mg capsule,delayed release 30 mg PO DAILY@1400 02/24/25
tramadol 50 mg tablet 50 mg PO Q6HPRN PRN severe pain #15 tabs 02/26/25
tamsulosin 0.4 mg capsule (Flomax) 0.4 mg PO DAILY #14 caps 03/01/25
Review of Systems
-
History Source: Patient
A 12 point ROS was completed and negative except as noted: Yes
Constitutional: Reports No Symptoms
EENT: Reports No Symptoms
Respiratory: Reports No Symptoms
Cardiac: Reports No Symptoms
Abdomen/GI: Reports No Symptoms
: Reports No Symptoms
Musculoskeletal: Reports No Symptoms
Skin: Reports No Symptoms
Neurological: Reports No Symptoms
Endocrine: Reports No Symptoms
Hematologic/Lymphatic: Reports No Symptoms
Psych: Reports No Symptoms
Physical Exam
Vital Signs
Vital Signs
Temp Pulse Resp BP Pulse Ox
98.1 F 88 16 125/75 96
03/04/25 15:53 03/04/25 15:53 03/04/25 15:53 03/04/25 15:53 03/04/25 18:02
Physical Exam
General: Well Developed, Well Nourished and No Apparent Distress
HEENT: NormoCephalic, Moist mucous membranes and Atraumatic
Respiratory: Clear
Cardiac: S1/S2 and Regular Rhythm; No Murmur or Rub
GI: Soft, Non Tender, Non Distended and Normal Bowel Sounds; No Organomegaly
Rectal: Deferred by Provider
Musculoskeletal: No Clubbing, No Cyanosis and No Edema
Skin: No Rash
Neuro: Nonfocal/grossly intact
Laboratory Results
-
03/04/25 16:07
03/04/25 16:07
Laboratory Results
Total Bilirubin 0.9 mg/dl (0.2-1.3) 03/04/25 16:07
AST 20 U/L (17-59) 03/04/25 16:07
ALT 30 U/L (0-50) 03/04/25 16:07
Alkaline Phosphatase 128 U/L (38-126) H 03/04/25 16:07
Lipase 90 U/L (23-300) 03/04/25 16:07
Data Reviewed
-
Lab Data: Labs Reviewed by me
Old Records: Reviewed
Impression/Plan
-
IMPRESSION:
PLAN:
# Likely obstructive left ureteral calculus
-Leukocytosis 19
- CT scan today shows left perinephric and periureteral soft tissue stranding which has progressed, moderate hydronephrosis, extrarenal pelvis slightly distended
-Urinalysis unremarkable
- IV fluids
- Blood cultures
- Ceftriaxone started
- Tylenol, Dilaudid for pain
-Zofran as needed
-Tamsulosin started
-N.p.o.
- Urology consulted
# Acute kidney injury prerenal
- Creatinine of 2.2
- IV fluids
Recent cholecystectomy
- On 02/25
Chronic back pain status post surgery
Essential hypertension
- Continue amlodipine
Carpal tunnel
Anxiety/depression
- Continue duloxetine
Full code
DVT prophylaxis�SCDs
N.p.o.
[2025-03-04 22:37] VITALS: BP 137/82
[2025-03-04] MEDS: DILAUDID 0.5 MG IV (23:36)
[2025-03-05] VITALS (7 sets, daily range): BP systolic 124–138; BP diastolic 61–75
[2025-03-05] MEDS: TYLENOL 650 MG PO (03:37)
[2025-03-05] MEDS: ZOFRAN 4 MG IV (03:38)
[2025-03-05] MEDS: DILAUDID 0.5 MG IV ×3 (03:38→20:53)
[2025-03-05] MEDS: ROCEPHIN 1000 MG IV (06:33)
[2025-03-05] MEDS: STERILE WATER FOR INJECTION 10 ML IV (06:37)
[2025-03-05 06:45] LABS: Hematocrit 31.7 % (39.0-52.0); Hemoglobin 11.0 g/dL (13.0-18.0); Mean Corp Hgb Conc. 34.7 g/dL (33.0-37.0); Mean Corpuscular Volume 90.3 fL (80.0-94.0); Nucleated Red Blood Cells % 0 % (-); Platelet Count 328 10^3/uL (130-400); Red Cell Dist. Width 14.7 % (11.5-14.5)
[2025-03-05 06:56] LABS: ALT (SGPT) 22 U/L (0-50); AST (SGOT) 17 U/L (17-59); Albumin 3.1 g/dl (3.5-5.0); Alkaline Phosphatase 114 U/L (38-126); Blood Urea Nitrogen 27 mg/dl (9-20); Calcium 8.4 mg/dl (8.4-10.2); Carbon Dioxide 22 mmol/L (22-30); Chloride 106 mmol/L (98-107); Estimated Creatinine Clearance 28 ml/min; Glucose 97 mg/dl (70-99); Potassium 4.3 mmol/L (3.5-5.1); Sodium 133 mmol/L (135-145); Total Protein 5.6 g/dl (6.3-8.2); eGFR 33.12
[2025-03-05] MEDS: NSS 1000 IV ×2 (07:23→20:49)
[2025-03-05] MEDS: FLOMAX 0.4 MG PO (07:23)
--- NOTE | 2025-03-05 09:47 | W.PN.HOSP.TC ---
Today's Communication/Plan
-
see outlined plan below
Assessment / Plan
Assessment / Plan
Assessment:
Sepsis POA (fever, tachycardia, leukocytosis, suspected UTI)
Obstructive L ureteral calculus
- CT 03/01: Mild LEFT hydronephrosis and hydroureter, which appears to be new compared to the recent prior study with new perinephric and periureteral stranding suspicious for obstructing calculus or recently passed calculus. There is a questionable
punctate stone within the distal ureter at the pelvic brim which could be a source of obstruction.
- CT 03/05: Left perinephric and periureteral soft tissue stranding has progressed. There is moderate hydronephrosis. Extrarenal pelvis, slightly distended. No apparent ureteral dilatation. No opaque renal or ureteral calculus. Findings may be
related to unspecified obstruction and/or infection.
- NPO for Urology evaluation, likely for stent procedure today
- continue IVF
- Continue Rocephin, day 1. Will add on urine culture to admission UA. Blood cultures were not sent on admission; will obtain now although will be lower diagnostic yield potentially
- continue Flomax
- pain control, anti-emetics
Obstructive LORNA
- continue IVF
- follow BMP
Acute calculus cholecystitis s/p lap august 02/25
- low fat diet when diet resumed
Chronic back pain status post surgery
Essential hypertension
- continue amlodipine
Anxiety/depression
- continue duloxetine
DVT ppx: SCDs
Code: Full
Anticipated Discharge: Within 24 hours
Subjective/Interval History
-
Date of Service: March 05, 2025
reports L flank pain
Tmax overnight at 330 AM was 100.4
Objective Data
-
Labs:
Laboratory Results
03/05/25
06:29
WBC 15.5 H
Hgb 11.0 L
Hct 31.7 L
Plt Count 328
Sodium 133 L
Potassium 4.3
Chloride 106
Carbon Dioxide 22
BUN 27 H
Creatinine 2.0 H
Glucose 97
Calcium 8.4
Total Bilirubin 0.8
AST 17
ALT 22
Alkaline Phosphatase 114
Vital Signs:
Vital Signs
Temp Pulse Resp BP Pulse Ox
98.4 F 92 18 124/66 96
03/05/25 07:30 03/05/25 03:35 03/05/25 03:35 03/05/25 03:35 03/04/25 22:37
I&O
03/04/25 03/05/25 03/06/25
06:59 06:59 06:59
Intake Total 130 / 130
Output Total 150 / 150 200 / 200
Balance -150 / -150 -70 / -70
Physical Exam
-
General: Appears in Distress and Pain
HEENT: Normocephalic and Atraumatic
Respiratory: Decreased Breath Sounds; Negative Wheezes
Cardiac: Regular Rhythm and S1/S2
GI: Soft, Nondistended and Tender (L flank)
Genito-urinary: Costovertebral Angle Tend (Left)
Neuro: AO x 3
Hematologic / Lymphatic: No Lymphadenopathy
Psych: Calm
Data Reviewed
-
Total Time Spent with Patient (in minutes): 45
Labs: Labs Reviewed by me
--- NOTE | 2025-03-05 11:03 | CM ---
CM reviewed chart and met with pt's spouse Joe bedside in ED, pt was sleeping.
Pt lives with spouse in 2 story condo, 1 KP, 15 steps to second floor BR/BA.
Independent in ADLs, personal care and ambulation at baseline. No assistive devices.
Per Joe, pt declined VN last visit but they are interested in VN at discharge.
No hx VN or SNF
PCP: Krish Ridley
Pharmacy: [facility]
Discharge plan: Anticipate home with VN pending ongoing medical evaluation
--- NOTE | 2025-03-05 13:10 | PTCARENOTE ---
Report called to OR. Belongings removed and given to family, pt voided. Pt sent to OR via transport.
--- NOTE | 2025-03-05 13:22 | W.PN.URO.CBU ---
Today's Communication / Plan
-
did preoop consented spoke with [facility] discussed side effects complications reviewed
Assessment / Plan
-
appears to have acute pyelo with fevr chills an increasing =htdro tender over left flank s=discussed options believe stent is best as pt no timproving on iv abs alone spiking fevr will place jj stent
Diagnosis
-
Date of Service: March 05, 2025
-
Patient Diagnosis:
left extrarenal pelvis but increasing hydro perinephric stranding thati s new with fever 100.4 and 20 k wbsc left colic
Post Op Day:
Subjective
-
feels poorly
Objective
-
Vital Signs
Temp Pulse Resp BP Pulse Ox
98.4 F 92 18 124/66 96
03/05/25 07:30 03/05/25 03:35 03/05/25 03:35 03/05/25 03:35 03/04/25 22:37
Intake and Output
03/04/25 03/05/25 03/06/25
06:59 06:59 06:59
Intake Total 130 / 130
Output Total 150 / 150 200 / 200
Balance -150 / -150 -70 / -70
Intake:
IV fluids (Total) 130 / 130
Output:
Urine, Voided 150 / 150 200 / 200
Laboratory Results
03/05/25 06:29
03/05/25 06:29
Review of Systems
-
Constitutional: Night Sweats and Chills
Abdomen/GI: Nausea
: Flank Pain
Physical Exam
-
General - well developed sick appearing
Chest - clear bilaterally
Abdomen - soft, non-tender, positive bowel sounds,left CVAT, no incisional pain or distention
Genitalia - normal
Rectal - normal
Skin - warm & dry with no rash
Neuro - AOx3, no motor deficits
Extremities - no clubbing, no cyanosis, no edema
Incision - clean, dry
Dressing - clean, dry, intact
Counseling
-
to op room
Care Review
Data Reviewed
Discussed with: Hospitalist, Nursing and Family
CT Scan: Image Pers Reviewed
--- NOTE | 2025-03-05 14:29 | W.SUR.POST ---
Surgical Immediate Post Op
Note
Pre Op Diagnosis: left hydro uti
Post Op Diagnosis: same
Procedure Performed: left jj stent and ur ine cx from left kidney retrograde pyelogram on cystioscopy
Primary Surgeon:josep
Secondary Surgeons:
Anesthesia: general dr blount
Estimated Blood Loss: 1cc
Fluids:
Drains/Shunts: 6 fr 254 cm jj stent and 18u fr vergara
Specimens/Cultures: urine left renal pelvis
Doppler/Duplex/Angio (Y/N):
Complications: 0
Operative Findings: left hudro or evxtrarenal pelvis left pyelo nephritis
[2025-03-05] MEDS: NSS IV (22:27)
[2025-03-06] MEDS: NSS 1000 IV ×2 (03:49→16:28)
[2025-03-06] MEDS: DILAUDID 0.5 MG IV ×4 (04:35→20:52)
[2025-03-06] MEDS: ROCEPHIN 1000 MG IV (05:13)
[2025-03-06] MEDS: STERILE WATER FOR INJECTION 10 ML IV (05:13)
[2025-03-06 07:35] VITALS: BP 143/74
[2025-03-06 09:15] LABS: Blood Urea Nitrogen 25 mg/dl (9-20); Calcium 8.6 mg/dl (8.4-10.2); Carbon Dioxide 21 mmol/L (22-30); Chloride 111 mmol/L (98-107); Estimated Creatinine Clearance 42 ml/min; Glucose 96 mg/dl (70-99); Potassium 4.2 mmol/L (3.5-5.1); Sodium 137 mmol/L (135-145); eGFR 55.53
[2025-03-06 09:17] LABS: Hematocrit 30.2 % (39.0-52.0); Hemoglobin 10.3 g/dL (13.0-18.0); Mean Corp Hgb Conc. 34.1 g/dL (33.0-37.0); Mean Corpuscular Volume 91.2 fL (80.0-94.0); Platelet Count 346 10^3/uL (130-400); Red Cell Dist. Width 14.7 % (11.5-14.5)
[2025-03-06 09:22] VITALS: BP 154/77; PULSE 74; O2SAT 99
[2025-03-06 09:54] VITALS: BP 154/77; PULSE 78; O2SAT 99
[2025-03-06] MEDS: FLOMAX 0.4 MG PO (10:40)
--- NOTE | 2025-03-06 12:33 | W.PN.URO.CBU ---
Today's Communication / Plan
-
remove vergara expect blood in urine frequency
Assessment / Plan
-
appears to have acute pyelo with fevr chills an increasing =htdro but sxs resolve with stent await rine cx from left kidney rest of paln per hospitalist but jose remove stant as outpatient
Diagnosis
-
Date of Service: March 06, 2025
-
Patient Diagnosis:
Post Op Day:
Patient Diagnosis:
left extrarenal pelvis but increasing hydro perinephric stranding thati s new with fever 100.4 and 20 k wbsc left colic
Post Op Day:
Subjective
-
no colic no fever some rtlq pain
Objective
-
Vital Signs
Temp Pulse Resp BP Pulse Ox
98.0 F 75 20 143/74 96
03/06/25 07:35 03/06/25 07:35 03/06/25 07:35 03/06/25 07:35 03/06/25 07:35
Intake and Output
03/05/25 03/06/25 03/07/25
06:59 06:59 06:59
Intake Total 1979
Output Total 150 / 150 1974
Balance -150 / -150 5 / 5
Intake:
Oral fluids 240 / 240
IV fluids (Total) 1740 / 1740
Nss 1,000 ml @ 130 mls/hr IV . 50 / 50
Q7H42M [facility] Rx#:[id number]
Output:
Urine, Vergara 1774
Urine, Voided 150 / 150 200 / 200
Laboratory Results
03/06/25 08:09
03/06/25 08:09
Review of Systems
-
: No Symptoms
Physical Exam
-
General - well developed, well nourished, no acute distress
Chest - clear bilaterally
Abdomen - soft, non-tender, positive bowel sounds, no CVAT, no incisional pain or distention
Genitalia - normal
Rectal - normal
Skin - warm & dry with no rash
Neuro - AOx3, no motor deficits
Extremities - no clubbing, no cyanosis, no edema
Incision - clean, dry
Dressing - clean, dry, intact
Care Review
Data Reviewed
Discussed with: Nursing and Family
--- NOTE | 2025-03-06 15:06 | VNURNOTE ---
Home Health Liaison met with patient and spouse at bedside to discuss [facility] nurse/therapy, visits, schedule and homebound status. Both are agreeable and understand that visits at home will be 2-3 x per week to assess and teach medical management.
Both are aware that [facility] will contact them for start of care in 1-2 days after discharge from .
[facility] referral completed in [facility].
[2025-03-06 15:20] VITALS: BP 138/66
--- NOTE | 2025-03-06 15:55 | CM ---
Patient seen at bedside on 1 acute. Patient also present. Patient states that he plans to go home with family. Patient and requesting [facility] and per chart, patient is for follow up with [facility]. CM will continue to follow for discharge
planning needs.
Plan; home with [facility] watch for further medical treatment plan needs.
--- NOTE | 2025-03-06 16:15 | W.PN.HOSP.TC ---
Today's Communication/Plan
-
continue IVF
continue IV Abx
CT A/P with IV/Oral contrast for RUQ/RLQ pain and GS eval. Recent Lap august 02/25
Assessment / Plan
Assessment / Plan
Assessment:
Sepsis POA (fever, tachycardia, leukocytosis, suspected UTI)
Obstructive L ureteral calculus
- CT 03/01: Mild LEFT hydronephrosis and hydroureter, which appears to be new compared to the recent prior study with new perinephric and periureteral stranding suspicious for obstructing calculus or recently passed calculus. There is a questionable
punctate stone within the distal ureter at the pelvic brim which could be a source of obstruction.
- CT 03/05: Left perinephric and periureteral soft tissue stranding has progressed. There is moderate hydronephrosis. Extrarenal pelvis, slightly distended. No apparent ureteral dilatation. No opaque renal or ureteral calculus. Findings may be
related to unspecified obstruction and/or infection.
- s/p stent procedure 03/05
- s/p Castro
- continue IVF
- Continue Rocephin, day 2. urine/blood cultures NGTD
- continue Flomax
- pain control, anti-emetics
RUQ/RLQ pain
Acute calculus cholecystitis s/p lap august 02/25
- obtain CT with IV/PO contrast
- GS evaluation
Obstructive LORNA
- continue IVF
- follow BMP
Chronic back pain status post surgery
Essential hypertension
- continue amlodipine
Anxiety/depression
- continue duloxetine
DVT ppx: SCDs
Code: Full
Anticipated Discharge: > 48 hours
Subjective/Interval History
-
Date of Service: March 06, 2025
reporting RUQ/RLQ pain today, some nausea. No fever/chills
Objective Data
-
Labs:
Laboratory Results
03/06/25
08:09
WBC 12.3 H
Hgb 10.3 L
Hct 30.2 L
Plt Count 346
Sodium 137
Potassium 4.2
Chloride 111 H
Carbon Dioxide 21 L
BUN 25 H
Creatinine 1.3
Glucose 96
Calcium 8.6
Total Bilirubin Pending
AST Pending
ALT Pending
Alkaline Phosphatase Pending
Vital Signs:
Vital Signs
Temp Pulse Resp BP Pulse Ox
97.6 F 68 16 138/66 98
03/06/25 15:20 03/06/25 15:20 03/06/25 15:20 03/06/25 15:20 03/06/25 15:20
I&O
03/05/25 03/06/25 03/07/25
06:59 06:59 06:59
Intake Total 1979
Output Total 150 / 150 1974
Balance -150 / -150 5 / 5
Physical Exam
-
General: No Apparent Distress
HEENT: Normocephalic and Atraumatic
Respiratory: Negative Wheezes
Cardiac: Regular Rhythm
GI: Nondistended and Tender (RUQ and RLQ to light palpation)
Musculoskeletal: No Edema
Neuro: AO x 3
Psych: Calm
Data Reviewed
-
Total Time Spent with Patient (in minutes): 44
Labs: Labs Reviewed by me
[2025-03-06] MEDS: OMNIPAQUE 50 ML PO (16:28)
[2025-03-06 16:32] LABS: ALT (SGPT) 19 U/L (0-50); AST (SGOT) 18 U/L (17-59); Albumin 3.1 g/dl (3.5-5.0); Alkaline Phosphatase 120 U/L (38-126); Total Protein 5.5 g/dl (6.3-8.2)
--- NOTE | 2025-03-06 16:38 | CON.GS ---
Consultation
-
Date/Time Consultation Performed: 03/06/25
Requesting Provider: Cuco
Performing Provider: Halle
Reason for Consultation: RUQ pain
Medical History
-
Chief Complaint: Abd pain
History of Present Illness:
79M about 1 week s/p uneventful lap august. Pt reports ongoing RUQ pain since the procedure. He reports he had some time without pain, then the pain returned but he is not sure when. The pain radiates to his back. He feels it is the same quality pain
he had before [facility]. He denies pale stools. He denies dark urine,. He was admitted 3 days ago with acute onset left flank pain radiating to his left teste and was dx'ed with nephrolithiasis with hydro. He underwent cysto with jj stent placement to
left ureter yesterday. Post-op dx was left pyelonephritis. Prior to admit he had n/v, presently this locke resolved.
Past Medical History
Past Medical History: Other (carpal tunnel, chronic back pain status post surgery, hypertension)
Past Surgical History: Other (as per HPI)
Social History
Tobacco: Non-Smoker
Alcohol: None
Drug: None
Personal: Partner
Family History
Family History: Reviewed & Noncontributory
Allergies / Home Medications
Allergy/AdvReac Type Severity Reaction Status Date / Time
clonazepam AdvReac doesn't Verified 03/04/25 15:58
work for
him per
family
�Medication �Instructions �Recorded �Confirmed �Type
amlodipine 10 mg tablet (Norvasc) 10 mg PO DAILY@139902/24/25 03/05/25 History
duloxetine 30 mg capsule,delayed 30 mg PO DAILY@139902/24/25 03/05/25 History
release
tamsulosin 0.4 mg capsule (Flomax) 0.4 mg PO DAILY #14 caps 03/01/25 03/05/25 Rx
hydrocodone 7.5 mg-acetaminophen 1 tab PO Q6HPRN PRN severe pains 03/05/25 03/05/25 History
325 mg tablet
Review of Systems
-
A 10 point review of systems was completed, and was negative except as per HPI.
Physical Exam
Vital Signs
Temp Pulse Resp BP Pulse Ox
97.6 F 68 16 138/66 98
03/06/25 15:20 03/06/25 15:20 03/06/25 15:20 03/06/25 15:20 03/06/25 15:20
03/05/25 03/06/25 03/07/25
06:59 06:59 06:59
Actual Weight 72 kg
Lab Results
03/06/25 08:09
03/06/25 08:09
WBC 12.3 10^3/uL (4.8-10.8) H 03/06/25 08:09
Hgb 10.3 g/dL (13.0-18.0) L 03/06/25 08:09
Hct 30.2 % (39.0-52.0) L 03/06/25 08:09
Plt Count 346 10^3/uL (130-400) 03/06/25 08:09
Abs Immat Gran (auto) 0.3 10^3/uL (0-0.05) H 03/05/25 06:29
Neutrophils % 81.0 % (42.2-75.2) H 03/05/25 06:29
Physical Exam
General: Well Developed, Well Nourished and No Apparent Distress
HEENT: Normocephalic and Anicteric
GI: Soft, Non Distended and Tender (mod ttp to RUQ, mild ttp to RLQ and epigastrium)
Skin: Warm and Dry
Neuro: AO x 3
Psych: Calm
Data Reviewed
-
CT Scan: Image Personally Visualized and interpreted, Report Reviewed by me, Discussed with Physician and Discussed with Patient
Labs: Labs Reviewed by me and Discussed with Physician
Old Records: Reviewed
Assessment / Plan
-
79M with persistent RUQ pain 9 days s/p lap august in setting of left nephrolithiasis and pyelonephritis
AFVSS, ttp to RUQ
Leukocytosis trending down
LFTs WNL
Non-con CT on admit with gas and fluid in fossa, possibly post-op finding vs developing abscess
Plan for repeat CT with IV contrast
Cont IV abx
Will follow
All other care as per primary team
[2025-03-06 18:36] VITALS: BP 162/79
--- NOTE | 2025-03-06 18:37 | PTCARENOTE ---
pt received for [address] scan[address] pt ambulated to bed. states he is having right lower quad abd pain. pain med had been given recently. clear breath sounds. ivf running as ordered.
[2025-03-06 22:57] VITALS: BP 95/75
[2025-03-07 01:30] VITALS: BP 147/90
[2025-03-07] MEDS: SENOKOT-S 1 TABLET PO ×2 (01:32→20:38)
[2025-03-07] MEDS: DILAUDID 0.5 MG IV (01:35)
[2025-03-07] MEDS: NSS 1000 IV ×2 (04:00→16:15)
[2025-03-07 05:40] LABS: Hematocrit 33.5 % (39.0-52.0); Hemoglobin 11.4 g/dL (13.0-18.0); Mean Corp Hgb Conc. 34.0 g/dL (33.0-37.0); Mean Corpuscular Volume 91.0 fL (80.0-94.0); Platelet Count 439 10^3/uL (130-400); Red Cell Dist. Width 14.6 % (11.5-14.5)
[2025-03-07] MEDS: STERILE WATER FOR INJECTION 10 ML IV (05:56)
[2025-03-07] MEDS: ROCEPHIN 1000 MG IV (05:56)
[2025-03-07 06:01] LABS: Blood Urea Nitrogen 23 mg/dl (9-20); Calcium 9.0 mg/dl (8.4-10.2); Carbon Dioxide 22 mmol/L (22-30); Chloride 107 mmol/L (98-107); Estimated Creatinine Clearance 50 ml/min; Glucose 90 mg/dl (70-99); Potassium 4.1 mmol/L (3.5-5.1); Sodium 139 mmol/L (135-145); eGFR > 60.00
[2025-03-07 07:00] VITALS: BP 160/80
[2025-03-07] MEDS: FLOMAX 0.4 MG PO (07:19)
[2025-03-07] MEDS: TYLENOL 650 MG PO (07:30)
--- NOTE | 2025-03-07 08:39 | W.PN.GS2 ---
Addendum entered and electronically signed by Claudy Mendez MD 03/07/25 15:22:
Patient seen and examined in follow-up this afternoon with nurse practitioner.
Agree with documented progress note. CT imaging scans postoperatively personally reviewed and interpreted.
Patient currently resting but awoke easily. Spouse at bedside.
Abdominal pain essentially unchanged but no worse. No BM yet. No nausea or vomiting. Tolerating dietary intake.
AFVSS
NAD AAO x 3
ABD: Soft, tenderness to palpation over incision sites in left side. Incisions with glue dressings. Some ecchymosis noted but no palpable hematomas.
A/P: Postop day #10 status post lap august
With regards to CT imaging findings this is likely reflective of postoperative surgical field rather than acute infectious component. Similar findings were present on 3 CT scans performed since surgery on 02/25/2025 and the degree of inflammation
and heterogeneous attenuation is improving between each scan.
Would recommend at this point following this finding expectantly unless there is a change in the clinical course of the patient.
Bowel regiment for postop constipation -MiraLAX and Senokot
Please call if can be of further assistance with patient's care during hospitalization.
Original Note:
Today's Communication / Plan
-
Bowel regimen
Assessment / Plan
-
79 yo male s/p lap cholecystectomy on 02/25/25 presenting for obstructive uropathy s/p left JJ stent placement on 03/05/25
Continues to improve clinically, but does C/O persistent pain to the right lateral abdomen. CT imaging reviewed, multiple scans since date of surgery with some minimal fluid within the gallbladder fossa with associated localized inflammation,
heterogenous attenuation present consistent with Surgiflo which was utilized during the case. There is interval improvement noted on yesterdays CT when compared to the CT from 03/01/25. Ecchymosis present at port sites on exam with tenderness to the
lateral right abdomen, ?resolving hematoma.
AFVSS
Leukocytosis resolved
Cr now normalized
No further nausea/vomiting, tolerating diet
Constipation present with reported last BM 7 days ago.
Plan:
Bowel regimen with scheduled miralax and senna/colace
Continue Analgesics as needed
Continue regular diet
ABX as per primary team
Subjective Data
-
Date of Service: March 07, 2025
Pt seen and examined at bedside. Denies nausea and vomiting. Pain to right mid to lateral abdomen persists, feels like 'i've been punched'. Tolerating diet. No BM x7 days.
Objective Data
-
Intake and Output
03/06/25 03/07/25 03/08/25
06:59 06:59 06:59
Intake Total 1979 1440 / 1440
Output Total 1974 1200 / 1200
Balance 5 / 5 240 / 240
Intake:
Oral fluids 240 / 240 480 / 480
IV fluids (Total) 1740 / 1740 960 / 960
Nss 1,000 ml @ 130 mls/hr IV . 50 / 50
Q7H42M [facility] Rx#:[id number]
Output:
Urine, Castro 1775 / 1775
Urine, Voided 200 / 200 1200 / 1200
Other:
Number of approximated MODERATE 3
amounts of urine
Vital Signs
Temp Pulse Resp BP Pulse Ox
98.2 F 88 16 147/90 98
03/06/25 22:57 03/07/25 01:30 03/06/25 22:57 03/07/25 01:30 03/06/25 22:57
Lab Results
03/07/25 05:16
03/07/25 05:16
Calcium 9.0 mg/dl (8.4-10.2) 03/07/25 05:16
Total Bilirubin 0.4 mg/dl (0.2-1.3) 03/06/25 08:09
AST 18 U/L (17-59) 03/06/25 08:09
ALT 19 U/L (0-50) 03/06/25 08:09
Alkaline Phosphatase 120 U/L (38-126) 03/06/25 08:09
Total Protein 5.5 g/dl (6.3-8.2) L 03/06/25 08:09
Albumin 3.1 g/dl (3.5-5.0) L 03/06/25 08:09
Physical Exam
-
Uncomfortable appearing
ABD soft, nd, mildly tender over right lateral incision with ecchymosis noted. Incisions healing well without erythema.
[2025-03-07] MEDS: MIRALAX 17 GRAMS PO (09:48)
--- NOTE | 2025-03-07 12:00 | PN.CDI ---
CDI
- -
CDI:
Physician Documentation Request
Admit Date: 03/04/25 22:39
Dear Doctor,
Please review the following and provide your response in the progress notes.
Clinical Indicators:
Pt admitted with Sepsis, UTI and left ureteral calculus.
Laboratory Tests
03/04/25 03/05/25
16:07 06:29
Sodium 132 L 133 L
Pt received 1,000 ml NSS bolus followed by NSS at 130mls/hr.
Based on the above, could you clarify in the progress notes, the appropriate diagnosis, if significant, that supports the above lab abnormalities and additional evaluation, monitoring and/or treatment rendered:
hyponatremia
Insignificant abnormal lab values
Other
Use of terms such as suspected, likely, concern for, or probable (associated with a specific diagnosis that is being evaluated, monitored, or treated as if it exists) are acceptable and can be coded in the inpatient setting, when documented at the
time of discharge.
Thank you,
Adriana Plunkett RN, BSN
CDI Specialist
[facility] [employer]
Please use your independent medical judgment in providing your response.
--- NOTE | 2025-03-07 12:33 | W.PN.URO.CBU ---
Today's Communication / Plan
-
no gu intervention
Assessment / Plan
-
appears to have acute pyelo with fevr chills an increasing =htdro but sxs resolve with stent await rine cx from left kidney rest of paln per hospitalist but jose remove stant as outpatient
Diagnosis
-
Date of Service: March 07, 2025
-
Patient Diagnosis:
Post Op Day:
Patient Diagnosis:
Post Op Day:
Patient Diagnosis:
left extrarenal pelvis but increasing hydro perinephric stranding thati s new with fever 100.4 and 20 k wbsc left colic
Post Op Day:
Subjective
-
no gu complaints some rlq and ruq discomfort
Objective
-
Vital Signs
Temp Pulse Resp BP Pulse Ox
98.3 F 71 16 160/80 97
03/07/25 07:00 03/07/25 07:00 03/07/25 07:00 03/07/25 07:00 03/07/25 07:00
Intake and Output
03/06/25 03/07/25 03/08/25
06:59 06:59 06:59
Intake Total 1979 1440 / 1440
Output Total 1974 1200 / 1200
Balance 5 / 5 240 / 240
Intake:
Oral fluids 240 / 240 480 / 480
IV fluids (Total) 1740 / 1740 960 / 960
Nss 1,000 ml @ 130 mls/hr IV . 50 / 50
[id number] [facility] Rx#:[id number]
Output:
Urine, Castro 1774 / 1774
Urine, Voided 200 / 200 1200 / 1200
Other:
Number of approximated MODERATE 3
amounts of urine
Laboratory Results
03/07/25 05:16
07/31/25 05:16
Review of Systems
-
: No Symptoms
Physical Exam
-
General - well developed, well nourished, no acute distress
Chest - clear bilaterally
Abdomen - soft, non-tender, positive bowel sounds, no CVAT, no incisional pain or distention
Genitalia - normal
Rectal - normal
Skin - warm & dry with no rash
Neuro - AOx3, no motor deficits
Extremities - no clubbing, no cyanosis, no edema
Incision - clean, dry
Dressing - clean, dry, intact
Care Review
Data Reviewed
Discussed with: Hospitalist and Family
--- NOTE | 2025-03-07 12:34 | W.PN.HOSP.TC ---
Today's Communication/Plan
-
oral pain control
bowel regimen
continue UTI Abx
Assessment / Plan
Assessment / Plan
Assessment:
Sepsis POA (fever, tachycardia, leukocytosis, suspected UTI)
Obstructive L ureteral calculus
- CT 03/01: Mild LEFT hydronephrosis and hydroureter, which appears to be new compared to the recent prior study with new perinephric and periureteral stranding suspicious for obstructing calculus or recently passed calculus. There is a questionable
punctate stone within the distal ureter at the pelvic brim which could be a source of obstruction.
- CT 03/05: Left perinephric and periureteral soft tissue stranding has progressed. There is moderate hydronephrosis. Extrarenal pelvis, slightly distended. No apparent ureteral dilatation. No opaque renal or ureteral calculus. Findings may be
related to unspecified obstruction and/or infection.
- s/p stent procedure 03/05
- s/p Castro
- continue IVF
- Continue Rocephin, day 3. urine/blood cultures NGTD
- continue Flomax
- pain control, anti-emetics
RUQ/RLQ pain
Acute calculus cholecystitis s/p lap august 02/25
- CT: minimal fluid within the gallbladder fossa with associated localized inflammation, heterogenous attenuation present consistent with Surgiflo which was utilized during the case. No evidence of abscess.
- GS following; bowel regimen ordered. Continue pain control
Obstructive LORNA
- continue IVF
- follow BMP
Chronic back pain status post surgery
Essential hypertension
- continue amlodipine
Anxiety/depression
- continue duloxetine
hyponatremia
- monitor
DVT ppx: SCDs
Code: Full
Anticipated Discharge: 24 - 48 hours
Subjective/Interval History
-
Date of Service: March 07, 2025
pain slightly improved
Objective Data
-
Labs:
Laboratory Results
03/07/25
05:16
WBC 10.5
Hgb 11.4 L
Hct 33.5 L
Plt Count 439 H D
Sodium 139
Potassium 4.1
Chloride 107
Carbon Dioxide 22
BUN 23 H
Creatinine 1.1
Glucose 90
Calcium 9.0
Vital Signs:
Vital Signs
Temp Pulse Resp BP Pulse Ox
98.3 F 71 16 160/80 97
03/07/25 07:00 03/07/25 07:00 03/07/25 07:00 03/07/25 07:00 03/07/25 07:00
I&O
03/06/25 03/07/25 03/08/25
06:59 06:59 06:59
Intake Total 1979 1440 / 1440
Output Total 1974 1200 / 1200
Balance 5 / 5 240 / 240
Physical Exam
-
General: No Apparent Distress
HEENT: Normocephalic and Atraumatic
Respiratory: Negative Wheezes
Cardiac: Regular Rhythm and S1/S2
GI: Tender (RLQ)
Musculoskeletal: No Edema
Neuro: AO x 3
Psych: Calm
Data Reviewed
-
Total Time Spent with Patient (in minutes): 42
Labs: Labs Reviewed by me
[2025-03-07] MEDS: CYMBALTA DELAYED RELEASE 30 MG PO (12:48)
[2025-03-07] MEDS: NORVASC 10 MG PO (12:49)
--- NOTE | 2025-03-07 14:45 | CM ---
CM following re: discharge planning.
Reviewed pt's chart, met with pt.
pt is POD#2 s/p left JJ stent placement, continue supportive care.
PT and OT evaluations noted - home PT/OT recommended. A referral to [facility] noted.
[facility] liaison following.
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
Please fax discharge instructions to [facility] at [phone].
D/C plan: home with [facility] and family support.
CM will follow with discharge plan updates as hospitalization progresses
[2025-03-07 15:05] VITALS: BP 142/72
[2025-03-07] MEDS: ULTRAM 50 MG PO (22:55)
[2025-03-07 23:00] VITALS: BP 129/68
[2025-03-08] MEDS: ROCEPHIN 1000 MG IV (05:11)
[2025-03-08 05:53] LABS: Hematocrit 32.2 % (39.0-52.0); Hemoglobin 10.9 g/dL (13.0-18.0); Mean Corp Hgb Conc. 33.9 g/dL (33.0-37.0); Mean Corpuscular Volume 91.5 fL (80.0-94.0); Platelet Count 449 10^3/uL (130-400); Red Cell Dist. Width 14.7 % (11.5-14.5)
[2025-03-08 06:18] LABS: Blood Urea Nitrogen 17 mg/dl (9-20); Calcium 9.1 mg/dl (8.4-10.2); Carbon Dioxide 23 mmol/L (22-30); Chloride 109 mmol/L (98-107); Estimated Creatinine Clearance 55 ml/min; Glucose 91 mg/dl (70-99); Potassium 4.1 mmol/L (3.5-5.1); Sodium 140 mmol/L (135-145); eGFR > 60.00
[2025-03-08] MEDS: MIRALAX 17 GRAMS PO (07:32)
[2025-03-08] MEDS: SENOKOT-S 1 TABLET PO (07:32)
[2025-03-08] MEDS: ULTRAM 50 MG PO (07:33)
[2025-03-08] MEDS: FLOMAX 0.4 MG PO (07:33)
[2025-03-08 07:35] VITALS: BP 163/83
[2025-03-08] MEDS: STERILE WATER FOR INJECTION IV (07:35)
--- NOTE | 2025-03-08 12:21 | CM ---
Addendum entered by Simone Nielsen 03/08/25 14:01:
CM met with pt and his at bedside.
Discharge order noted. Pt is aware, expressed his agreement.
Please fax discharge instructions to [facility] at [phone].
D/C plan: home with [facility] and support. to transport.
Original Note:
CM following re: discharge planning.
Reviewed pt's chart, met with pt.
IMM reviewed, placed on chart, pt has a copy.
Pt is POD#3 s/p left JJ stent placement, continue supportive care.
PT and OT evaluations noted - home PT/OT recommended. A referral to [facility] noted.
[facility] liaison following.
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
Please fax discharge instructions to [facility] at [phone].
D/C plan: home with [facility] and family support.
CM will follow with discharge plan updates as hospitalization progress.
[2025-03-08] MEDS: CYMBALTA DELAYED RELEASE 30 MG PO (13:48)
[2025-03-08] MEDS: NORVASC 10 MG PO (13:48)
[2025-03-08 13:49] VITALS: BP 150/75
--- NOTE | 2025-03-08 13:49 | W.PN.HOSP.TC ---
Today's Communication/Plan
-
dc to home/VN
Assessment / Plan
Assessment / Plan
Assessment:
Sepsis POA (fever, tachycardia, leukocytosis, suspected UTI)
Obstructive L ureteral calculus
- CT 03/01: Mild LEFT hydronephrosis and hydroureter, which appears to be new compared to the recent prior study with new perinephric and periureteral stranding suspicious for obstructing calculus or recently passed calculus. There is a questionable
punctate stone within the distal ureter at the pelvic brim which could be a source of obstruction.
- CT 03/05: Left perinephric and periureteral soft tissue stranding has progressed. There is moderate hydronephrosis. Extrarenal pelvis, slightly distended. No apparent ureteral dilatation. No opaque renal or ureteral calculus. Findings may be
related to unspecified obstruction and/or infection.
- s/p stent procedure 03/05
- s/p Castro
- Continue Rocephin, day 11/15. urine/blood cultures NGTD
- continue Flomax
- pain control, anti-emetics
RUQ/RLQ pain
Acute calculus cholecystitis s/p lap august 02/25
- CT: minimal fluid within the gallbladder fossa with associated localized inflammation, heterogenous attenuation present consistent with Surgiflo which was utilized during the case. No evidence of abscess.
- GS following; bowel regimen with multiple BMs. Continue pain control
- OP GS f/u
Obstructive LORNA
- improved
Chronic back pain status post surgery
Essential hypertension
- continue amlodipine
Anxiety/depression
- continue duloxetine
hyponatremia
- monitor
DVT ppx: SCDs
Code: Full
More than 30 minutes spent in discharge including
Final examination of the patient
Summarizing hospital stay
Instructions for continuing care to all relevant caregivers
Preparation of discharge records, prescriptions, and referral forms
Total time spent (in minutes): 41
Anticipated Discharge: Today
Subjective/Interval History
-
Date of Service: March 08, 2025
resting comfortably
s/p 2 BMs
Objective Data
-
Labs:
Laboratory Results
03/08/25
05:30
WBC 7.7
Hgb 10.9 L
Hct 32.2 L
Plt Count 449 H
Sodium 140
Potassium 4.1
Chloride 109 H
Carbon Dioxide 23
BUN 17
Creatinine 1.0
Glucose 91
Calcium 9.1
Vital Signs:
Vital Signs
Temp Pulse Resp BP Pulse Ox
98.6 F 71 18 150/75 97
03/08/25 07:35 03/08/25 13:48 03/08/25 07:35 03/08/25 13:48 03/08/25 07:35
I&O
03/07/25 03/08/25 03/09/25
06:59 06:59 06:59
Intake Total 1440 / 1440 1240 / 1240 240 / 240
Output Total 1200 / 1200 2525 / 2525
Balance 240 / 240 -1285 / -1285 240 / 240
Physical Exam
-
General: No Apparent Distress
HEENT: Normocephalic and Atraumatic
Respiratory: Negative Wheezes
Cardiac: Regular Rhythm and S1/S2
GI: Soft
Genito-urinary: No Costovertebral Tender
Neuro: AO x 3
Hematologic / Lymphatic: No Lymphadenopathy
Psych: Calm
Data Reviewed
-
Total Time Spent with Patient (in minutes): 41
Labs: Labs Reviewed by me
--- NOTE | 2025-03-08 13:54 | W.DS.TRANS ---
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
-
Discharge Instructions:
Discharge Diagnosis/Procedures L ureteral stone s/p stent placement 03/05/25,
pyelonephritis, constipation related abdominal
pain
Diet Regular
Activity No strenuous activity
Additional Activity Do not lift over 15lbs for the next 2 weeks
Bathing Restrictions OK to Shower
Other Services VN
Instructions:
Stand-Alone Forms:
Changes to Home Medications: No
Discharge Medications:
DC Medications w/original date entered in [facility]
amlodipine 10 mg tablet (Norvasc) 10 mg PO DAILY@1400 02/24/25
duloxetine 30 mg capsule,delayed release 30 mg PO DAILY@1400 02/24/25
tamsulosin 0.4 mg capsule (Flomax) 0.4 mg PO DAILY #14 caps 03/01/25
hydrocodone 7.5 mg-acetaminophen 325 mg tablet 1 tab PO Q6HPRN PRN severe pains 03/05/25
acetaminophen 325 mg tablet 650 mg (2 x 325 mg) PO Q4HPRN PRN mild pain/RINCON/temp> 100.4F #100 tabs 03/08/25
cefdinir 300 mg capsule 300 mg PO BID #12 caps 03/08/25
phenazopyridine 200 mg tablet 200 mg PO Q8H PRN URGENCY #20 tabs 03/08/25
polyethylene glycol 3350 17 gram oral powder packet 17 g PO DAILY #30 ea 03/08/25
sennosides 8.6 mg-docusate sodium 50 mg tablet 1 tab PO BID #60 tabs 03/08/25
Home Medication Changes
Pending Results: No
Total time spent discharging patient (in min): 42
== END 2025-03-08 14:17 | disposition home health service (06) | DRG 854 ==
LOC: 2 SOUTH 22:39
PROVIDERS: Emergency Medicine; ADMITTING PHYSICIAN Hospitalist; ATTENDING PHYSICIAN Internal Medicine; CONSULT PHYSICIAN Specialist; CONSULT PHYSICIAN Surgery; EMERGENCY PHYSICIAN Emergency Medicine; FAMILY PHYSICIAN Internal Medicine Geriatric Medicine
PROC: BT1F1ZZ Fluoroscopy of Left Kidney, Ureter and Bladder using Low Osmolar Contrast (ICD-10-PCS; 2025-03-05)
PROC: 0T778DZ Dilation of Left Ureter with Intraluminal Device, Via Natural or Artificial Opening Endoscopic (ICD-10-PCS; 2025-03-05)
DX: A41.9 Sepsis, unspecified organism (principal); E87.1 Hypo-osmolality and hyponatremia; N13.6 Pyonephrosis; N17.9 Acute kidney failure, unspecified; K59.09 Other constipation; G89.29 Other chronic pain; I10 Essential (primary) hypertension; F32.A Depression, unspecified; F41.9 Anxiety disorder, unspecified; Z87.891 Personal history of nicotine dependence; Z90.49 Acquired absence of other specified parts of digestive tract
CPT/HCPCS: 74176; 74177; 74420; 76000; 80048; 80053; 81003; 81015; 83690; 85025; 85027; 87040; 87086; 97116; 97163; 97166; C2617; Q9967

== ENCOUNTER → 2025-07-11 17:51 | Outpatient (REF) | payer OTHER, SELFPAY | LOC: PAVMRI 17:51 | PROVIDERS: ATTENDING PHYSICIAN Orthopaedic Surgery; FAMILY PHYSICIAN Internal Medicine Geriatric Medicine | DX: M25.511 Pain in right shoulder (principal) | CPT/HCPCS: 73221 ==

== ENCOUNTER → 2025-07-25 07:28 | Outpatient (REF) | payer OTHER, SELFPAY | LOC: RAD 07:28 | PROVIDERS: ATTENDING PHYSICIAN Internal Medicine Geriatric Medicine | DX: I10 Essential (primary) hypertension (principal); R26.89 Other abnormalities of gait and mobility; R26.9 Unspecified abnormalities of gait and mobility; R41.3 Other amnesia; I95.1 Orthostatic hypotension; Z13.89 Encounter for screening for other disorder; N18.31 Chronic kidney disease, stage 3a; I73.9 Peripheral vascular disease, unspecified | CPT/HCPCS: 93922; 93925 ==